=== PATIENT | female | born 1960 | race Caucasian/White ===

== ENCOUNTER 2020-10-09 12:06 | Outpatient (REF) | payer OTHER, SELFPAY ==
[2020-10-09 15:24] LABS: Alanine Aminotransferase 9 U/L (0-31); Alkaline Phosphatase 87 U/L (39-117); Anion Gap 13 (12-20); Aspartate Amino Transferase 16 U/L (5-31); Bilirubin Direct 0.2 mg/dL (0.0-0.5); Bilirubin Total 0.5 mg/dL (0.0-1.0); Blood Urea Nitrogen 19 mg/dL (9-16); Calcium 9.1 mg/dL (8.4-10.2); Carbon Dioxide 28 mmol/L (22-29); Chloride 106 mmol/L (96-108); Estimated Glomerular Filt Rate > 60; Glucose Random 85 mg/dL (60-115); Potassium 4.9 mmol/L (3.3-5.1); Sodium 142 mmol/L (135-145); Total Protein 6.4 g/dL (6.5-8.0)
[2020-10-09 15:28] LABS: Amphetamine Screen Urine Not Detected (Not Detect); Barbiturates, Urine Not Detected (Not Detect); Benzodiazepines Screen Urine Not Detected (Not Detect); Cannabinoid Screen Urine POSITIVE (Not Detect); Cocaine Screen Urine Not Detected (Not Detect); Opiate Screen Urine Not Detected (Not Detect); Phencyclidine Screen Urine Not Detected (Not Detect)
[2020-10-12 18:53] LABS: Codeine, Ur NEGATIVE ng/mL (<50); Hydrocodone, Ur NEGATIVE ng/mL (<50); Hydromorphone, Ur NEGATIVE ng/mL (<50); Morphine, Ur NEGATIVE ng/mL (<50); Norhydrocodone, Ur NEGATIVE ng/mL (<50); Noroxycodone, Ur 2294 ng/mL (<50); Oxycodone, Ur 1126 ng/mL (<50); Oxymorphone, Ur 1552 ng/mL (<50)
== END 2020-10-09 12:07 | disposition home or self-care (01) ==
LOC: HO.HMGCLDS 12:06
PROVIDERS: PCP Internal Medicine; Visit Provider Internal Medicine
DX: R52 Pain, unspecified (principal); G43.119 Migraine with aura, intractable, without status migrainosus; M16.0 Bilateral primary osteoarthritis of hip
CPT/HCPCS: 80048; 80076; 80307; 80364; 80365

== ENCOUNTER → 2020-11-10 09:50 | Outpatient (BNVA) | payer OTHER, SELFPAY | PROVIDERS: PCP Internal Medicine; Visit Provider Nurse Practitioner Family | DX: M47.816 Spondylosis without myelopathy or radiculopathy, lumbar region (principal) | CPT/HCPCS: 99212 ==

== ENCOUNTER → 2020-11-11 08:59 | Outpatient (BNVA) | payer OTHER, SELFPAY | PROVIDERS: PCP Internal Medicine; Visit Provider Physician Assistant | CPT/HCPCS: Q3014 ==

== ENCOUNTER 2020-12-24 11:47 | Day surgery (SDC) | payer OTHER, SELFPAY ==
[2020-12-17 15:55] VITALS: BMI 53.9
--- NOTE | 2020-12-23 09:05 | P.CONAN_ITS ---
Documented by User: Carla Grullonney 12/23/20 09:07 HPI - Anesthesia Eval Consult details Narrative: 60yo F for Colonoscopy prn opioids PMFSH Active Problems Active Problems: All Active Problems (Updated 12/17/20 @ 15:42 by Skyla Mcguire) Pain management (Acute) Encounter for screening colonoscopy (Acute) Change in mole (Acute) Depression (Acute) Blood pressure alteration (Acute) Migraine headache (Acute) Osteoarthritis, hip, bilateral (Acute) Past Medical History Medical History Chronic back pain Depression DJD (degenerative joint disease) Elevated cholesterol Migraine headache Osteoarthritis, hip, bilateral Spondylosis of lumbar region without myelopathy or radiculopathy Family History Family History Mother No problems noted. Sister No problems noted. Sister No problems noted. Son No problems noted. Father Lung cancer Surgical History Surgical History History of hip replacement History of wisdom tooth extraction Hx of cholecystectomy Hx of colonoscopy Hx of dilation and curettage S/P laparoscopic sleeve gastrectomy Social History Social History Household Members Other:: alone Are you a primary home health aide caregiver to a significant other at home: No Do you presently have visiting nurse or other home services: No Alcohol intake: never Years Smoked: 25 Smoked in Last 30 Days: No Use of substances other than those prescribed or required for medical reasons: No Substance Use Type: Marijuana Substance Use Type Other:: Denies use now Have you been hit, kicked, punched, or otherwise hurt by someone within the past year? If so, by whom?: No Are you DNR?: No Advance Directives: No Advance Directives Information Provided: No Advance Directives on File: No Recently lost weight without trying: No Eating poorly because of decreased appetite: No Nutrition Risks: No Nutritional Risk Patient : No Current occupational status: disabled Meds Allergies Allergy/AdvReac Type Severity Reaction Status Date / Time amoxicillin [AMOXICILLIN] Allergy Unknown ITCHING, Verified 12/24/20 12:04 rash clarithromycin Allergy Unknown ITCHING, Verified 12/24/20 12:04 [CLARITHROMYCIN] rash ENVIRONMENTAL Allergy Unknown RUNNY NOSE Uncoded 12/17/20 15:45 Home Medications Medication Instructions Recorded Confirmed Last Taken Type mirabegron 25 mg tablet,extended 25 mg PO DAILY 11/11/20 12/23/20 Unknown History release 24 hr trospium 60 mg capsule,extended 60 mg PO DAILY 11/11/20 12/23/20 Unknown History release 24 hr Exam Exam Date and Time: December 23, 2020 09 Height,Weight and Vital Signs: Height 5 ft 10 in Weight 170.551 kg Pertinent Lab Results Pertinent Lab Results: Laboratory Tests 04/10/20 10/09/20 09:58 12:13 WBC 5.0 Hgb 14.5 Hct 45.6 Plt Count 339 D Sodium 142 Potassium 4.9 Chloride 106 Carbon Dioxide 28 BUN 19 H Creatinine 0.79 Assessment and Plan Assessment Anesthesia Assessment: Chart Reviewed Documented by User: Kemal Rocha MD 12/24/20 12:48 PMFSH Past Medical History Medical History Chronic back pain Depression DJD (degenerative joint disease) Elevated cholesterol Migraine headache Osteoarthritis, hip, bilateral Spondylosis of lumbar region without myelopathy or radiculopathy Family History Family History Mother No problems noted. Sister No problems noted. Sister No problems noted. Son No problems noted. Father Lung cancer Surgical History Surgical History History of hip replacement History of wisdom tooth extraction Hx of cholecystectomy Hx of colonoscopy Hx of dilation and curettage S/P laparoscopic sleeve gastrectomy Social History Social History Household Members Other:: alone Are you a primary home health aide caregiver to a significant other at home: No Do you presently have visiting nurse or other home services: No Alcohol intake: never Years Smoked: 25 Smoked in Last 30 Days: No Use of substances other than those prescribed or required for medical reasons: No Substance Use Type: Marijuana Substance Use Type Other:: Denies use now Have you been hit, kicked, punched, or otherwise hurt by someone within the past year? If so, by whom?: No Are you DNR?: No Advance Directives: No Advance Directives Information Provided: No Advance Directives on File: No Recently lost weight without trying: No Eating poorly because of decreased appetite: No Nutrition Risks: No Nutritional Risk Patient : No Current occupational status: disabled Meds Allergies Allergy/AdvReac Type Severity Reaction Status Date / Time amoxicillin [AMOXICILLIN] Allergy Unknown ITCHING, Verified 12/24/20 12:04 rash clarithromycin Allergy Unknown ITCHING, Verified 12/24/20 12:04 [CLARITHROMYCIN] rash ENVIRONMENTAL Allergy Unknown RUNNY NOSE Uncoded 12/17/20 15:45 Home Medications Medication Instructions Recorded Confirmed Last Taken Type mirabegron 25 mg tablet,extended 25 mg PO DAILY 11/11/20 12/23/20 Unknown History release 24 hr trospium 60 mg capsule,extended 60 mg PO DAILY 11/11/20 12/23/20 Unknown History release 24 hr Exam Airway Mallampati Class: I TM Dist: >3cm Neck ROM: Full Loose/Missing/Broken Teeth: No Heart: RRR Lungs: NL Assessment and Plan Assessment Anesthesia Assessment: Anesthesia Plan Discussed and Chart Reviewed Final Anesthetic Review NPO: Yes ASA Class: III Final Preanesthetic Review: No Changes in Pt Med Stat, Meds/Allgs Chart Reviewed, Consent Obtained/Reviewed and Anes Risks/Benef Reviewed Patient Risk: High Procedure Risk: Low Anesthetic Plan Anesthetic Plan: MAC: Disposition: Standard PACU
[2020-12-24 12:15] VITALS: BP 140/67; PULSE 79; RESP 20; TEMP 36.3; O2SAT 96
[2020-12-24] MEDS: Lactated Ringers 1,000 ML 100 ML IVCONT (12:30)
--- NOTE | 2020-12-24 12:35 | MHC.SHP ---
Pre-Procedural Eval Section B Chief Complaint: Screening Relevant Family History (Specify if Yes): No Relevant Social History: Other (specify) (THC) Present Medications: see Short Stay Collaborative assessment Medical History: Significant History (Chronic back pain Depression DJD (degenerative joint disease) Elevated cholesterol Migraine headache Osteoarthritis, hip, bilateral Spondylosis of lumbar region without myelopathy or radiculopathy) History of Previous Operations: Relevant previous surgery/procedure and date(s) (History of hip replacement History of wisdom tooth extraction Hx of cholecystectomy Hx of colonoscopy Hx of dilation and curettage S/P laparoscopic sleeve gastrectomy) Allergies: Allergies Allergy/AdvReac Type Severity Reaction Status Date / Time amoxicillin [AMOXICILLIN] Allergy Unknown ITCHING, Verified 12/24/20 12:04 rash clarithromycin Allergy Unknown ITCHING, Verified 12/24/20 12:04 [CLARITHROMYCIN] rash ENVIRONMENTAL Allergy Unknown RUNNY NOSE Uncoded 12/17/20 15:45 Review of Systems Sugical H&P ROS: Negative: Cardiovascular, Respiratory, Neurological, Psychiatric, Hem-Onc, Allergic/Immunologic, Gastrointestinal, Genitourinary, Musculoskeletal, Integumentary, Endocrine and Eyes/Ears/Nose/Throat and Yes, Specify: Constitution (obese) Exam Surgical H&P Exam: Normal: HEENT, Normal: Heart, Normal: Lungs, Normal: Extremities, Normal: Abdomen, Normal: Skin and Normal: Neurological Plan Diagnosis/Plan: Unchanged I have reviewed the history and physical and performed a pertinent physical examination on my patient. No changes have occurred unless specified.
--- NOTE | 2020-12-24 13:03 | P.OP_ITS ---
Operative Note Operative Note Date of Service: 12/24/20 Narrative: Operative Information Procedure Description: Colonoscopy COLONOSCOPY Instrument: Olympus variable stiffness adult scope 190L Colonoscopy Monitoring: Vital signs and clinical assessment, continuous EKG monitoring, Pulse oximetry, Carbon Dioxide monitoring and blood pressure monitoring were done throughout the procedure. Colon withdrawal time was 14 minutes. Procedure: The patient was placed in the left lateral decubitis position and pre-procedure medications were administered. After a digital rectal examination of the ano-rectum, the video colonoscope was inserted into the rectum and advanced through the colon to the cecum/TI. The colonoscope was slowly withdrawn in a retrograde panoramic fashion and the colon mucosa was carefully examined including a retroflexed view of the rectum. Findings and interventions are described below. Procedure Difficulty:moderate Findings: Terminal Ileum-normal Cecum: 6-8 mm sessile polyp removed with forceps Ascending Colon: 6-8 mm sessile polyp removed with forceps Transverse Colon -normal Descending Colon:normal Sigmoid Colon: moderate severe diverticulosis, with mucosal hypertrophy Rectosigmoid junction-- 10-12 mm sessile polyp removed with cold snare Rectum: Retroflexion with small internal hemorrhoids, grade I Anorectum - normal Colon preparation: [place] Bowel Preparation Scale Right colon; 2 Transverse colon: 2 Left colon; 3 (0 = Unprepared colon segment with mucosa not seen due to solid stool that cannot be cleared. 1 = Portion of mucosa of the colon segment seen, but other areas of the colon segment not well seen due to staining, residual stool and/or opaque liquid. 2 = Minor amount of residual staining, small fragments of stool and/or opaque liquid, but mucosa of colon segment seen well. 3 = Entire mucosa of colon segment seen well with no residual staining, small fragments of stool or opaque liquid) Impression and Post Procedure Diagnosis: polyps internal hemorrhoids diverticular disease Plan: High fiber diet leaflet Avoid straining at stool, epsom salts and sitz bath, anusol supps or cream as needed Repeat Colonoscopy in 5 years or earlier if clinically indicated Above findings were reviewed with the patient and relevant handouts were provided if indicated.
--- NOTE | 2020-12-24 13:03 | PM.OP ---
Brief Operative Note Date of Service: 12/24/20 Pre-op diagnosis: colon screening Post-op diagnosis: same Procedure: see op note Surgeon: Davie Werner MD Anesthesia: MAC Was an Painting And Coating Worker used for this Procedure?: No Estimated blood loss (mL): 0 Condition: stable Disposition: PACU
[2020-12-24 13:44] VITALS: BP 150/83; PULSE 74; RESP 20; TEMP 37.1; O2SAT 99
[2020-12-24 13:59] VITALS: BP 157/81; PULSE 74; RESP 18; TEMP 37; O2SAT 99
== END 2020-12-24 15:00 | disposition home or self-care (01) ==
PROVIDERS: PCP Internal Medicine; Visit Provider Internal Medicine Gastroenterology
PROC: 0DJD8ZZ Inspection of Lower Intestinal Tract, Via Natural or Artificial Opening Endoscopic (ICD-10-PCS; CPT 45378; principal; 2020-12-24 13:00)
DX: Z12.11 Encounter for screening for malignant neoplasm of colon (principal); D12.2 Benign neoplasm of ascending colon; D12.7 Benign neoplasm of rectosigmoid junction; K63.5 Polyp of colon; K57.30 Diverticulosis of large intestine without perforation or abscess without bleeding; K64.0 First degree hemorrhoids; K64.4 Residual hemorrhoidal skin tags; Z90.49 Acquired absence of other specified parts of digestive tract; F12.90 Cannabis use, unspecified, uncomplicated; Z98.84 Bariatric surgery status; Z88.0 Allergy status to penicillin; Z88.1 Allergy status to other antibiotic agents
CPT/HCPCS: 45385; 45380; 88305

== ENCOUNTER 2021-01-05 07:31 | Outpatient (REF) | payer OTHER, SELFPAY ==
--- NOTE | ~2021-01-05 | FL_ITS ---
EXAMINATION: XR FLUOROSCOPY WITH IMAGES CLINICAL INFORMATION: Spondylosis without myelopathy cortical collapse COMPARISON: None. TECHNIQUE: Fluoroscopy performed by Ayaan Linares. Fluoroscopy time: 1.1 minutes DAP: 26.3 Gycm2 Images: 6 FINDINGS: There are 5 6 images available revealing and bilateral needles positioned lateral to the L4-L5 and S1 pedicles with contrast opacification of the soft tissues for nerve block. Visualized bones are grossly unremarkable. FL/FL guidance in treatment room IMPRESSION: Fluoroscopy was provided to Ayana Linares during spinal procedure.
== END 2021-01-05 07:32 | disposition home or self-care (01) ==
LOC: HO.RADIR 07:31
PROVIDERS: Visit Provider Anesthesiology
DX: M47.816 Spondylosis without myelopathy or radiculopathy, lumbar region (principal)
CPT/HCPCS: 64493; 64494; J3300; Q9967

== ENCOUNTER → 2021-01-12 10:48 | Outpatient (BNVA) | payer OTHER, SELFPAY | PROVIDERS: PCP Internal Medicine; Visit Provider Nurse Practitioner Family | DX: M47.816 Spondylosis without myelopathy or radiculopathy, lumbar region (principal) | CPT/HCPCS: Q3014 ==

== ENCOUNTER → 2021-01-18 09:07 | Outpatient (BNVA) | payer OTHER, SELFPAY | PROVIDERS: PCP Internal Medicine; Visit Provider Physician Assistant | CPT/HCPCS: Q3014 ==

== ENCOUNTER 2021-03-23 07:37 | Outpatient (REF) | payer OTHER, SELFPAY ==
--- NOTE | ~2021-03-23 | FL_ITS ---
EXAMINATION: XR FLUOROSCOPY WITH IMAGES CLINICAL INFORMATION: Spondylolysis COMPARISON: Previous exam December 2020 TECHNIQUE: Fluoroscopy performed by Dr. Szymanski Fluoroscopy time: 1.4 minutes DAP: 28 Gycm2 Images: 3 FINDINGS: Images demonstrate probe placement adjacent to the lateral bilateral L3, L4 and L5 vertebral bodies. FL/FL guidance in treatment room IMPRESSION: Fluoroscopy guidance for spinal procedure.
== END 2021-03-23 07:38 | disposition home or self-care (01) ==
LOC: HO.RADIR 07:37
PROVIDERS: Visit Provider Anesthesiology
DX: M47.816 Spondylosis without myelopathy or radiculopathy, lumbar region (principal); E66.01 Morbid (severe) obesity due to excess calories
CPT/HCPCS: 64635; 64636; J3300

== ENCOUNTER → 2021-04-28 11:16 | Outpatient (BNVA) | payer OTHER, SELFPAY | PROVIDERS: PCP Internal Medicine; Visit Provider Anesthesiology | DX: Z47.89 Encounter for other orthopedic aftercare (principal); M47.816 Spondylosis without myelopathy or radiculopathy, lumbar region; E66.01 Morbid (severe) obesity due to excess calories; Z68.43 Body mass index [BMI] 50.0-59.9, adult | CPT/HCPCS: Q3014 ==

== ENCOUNTER 2021-08-24 13:49 | Outpatient (REF) | payer OTHER, SELFPAY ==
[2021-08-24 16:49] LABS: Alanine Aminotransferase 11 U/L (0-31); Albumin Level 3.7 g/dL (3.5-5.0); Alkaline Phosphatase 82 U/L (39-117); Anion Gap 12 (12-20); Aspartate Amino Transferase 13 U/L (5-31); Bilirubin Total 0.4 mg/dL (0.0-1.0); Blood Urea Nitrogen 25 mg/dL (9-16); Calcium 9.2 mg/dL (8.4-10.2); Carbon Dioxide 26 mmol/L (22-29); Chloride 107 mmol/L (96-108); Estimated Glomerular Filt Rate > 60; Glucose Random 95 mg/dL (60-115); Potassium 4.8 mmol/L (3.3-5.1); Sodium 140 mmol/L (135-145); Total Protein 6.4 g/dL (6.5-8.0)
[2021-08-24 16:57] LABS: Amphetamine Screen Urine Not Detected (Not Detect); Barbiturates, Urine Not Detected (Not Detect); Benzodiazepines Screen Urine Not Detected (Not Detect); Cannabinoid Screen Urine Not Detected (Not Detect); Cocaine Screen Urine Not Detected (Not Detect); Fentanyl, urine Not Detected (Not Detect); Opiate Screen Urine POSITIVE (Not Detect); Phencyclidine Screen Urine Not Detected (Not Detect)
[2021-08-29 13:01] LABS: Codeine, Ur 213; Hydrocodone, Ur NEGATIVE; Hydromorphone, Ur NEGATIVE; Morphine, Ur NEGATIVE; Oxycodone, Ur 1589; Oxymorphone, Ur 1092
[2021-08-29 13:02] LABS: Norhydrocodone, Ur NEGATIVE; Noroxycodone, Ur 4128
== END 2021-08-24 13:50 | disposition home or self-care (01) ==
LOC: HO.HMGCLDS 13:49
PROVIDERS: Visit Provider Internal Medicine
DX: F11.20 Opioid dependence, uncomplicated (principal); G43.909 Migraine, unspecified, not intractable, without status migrainosus; M16.0 Bilateral primary osteoarthritis of hip; R52 Pain, unspecified
CPT/HCPCS: 80053; 80307; 80364; 80365

== ENCOUNTER 2022-03-04 11:05 | Outpatient (REF) | payer OTHER, SELFPAY ==
[2022-03-04 13:35] LABS: MANUAL DIFF FLAG NO
[2022-03-04 13:47] LABS: Basophils Percent Auto 0.7 % (0-2); Eosinophils Absolute Auto 0.1 X10*3/uL (0.0-0.4); Eosinophils Percent Auto 2.9 % (0-4); Hematocrit 42.8 % (37.0-47.0); Hemoglobin 13.6 g/dl (12.0-16.0); Imm Gran Abs Auto 0.01 X10*3/uL (0.00-0.03); Imm Gran Pct Auto 0.2 % (0.0-0.4); Lymphocytes Absolute Auto 1.3 X10*3/uL (1.2-4.9); Lymphocytes Percent Auto 29.5 % (20-40); Mean Corpuscular HGB Conc 31.8 g/dl (31.0-35.0); Mean Corpuscular Hemoglobin 29.1 pg (27.0-33.0); Mean Corpuscular Volume 91.6 fL (80.0-98.0); Monocytes Absolute Auto 0.3 X10*3/uL (0.1-1.2); Monocytes Percent Auto 5.6 % (2-11); Neutrophils Absolute Auto 2.7 x10*3/uL (2.0-8.3); Neutrophils Percent Auto 61.1 % (45-73); Platelet Count 310 X10*3/uL (160-400); Red Blood Count 4.67 X10*6/uL (4.20-5.50); Red Cell Distribution Width 12.9 % (11.0-16.0); White Blood Count 4.4 X10*3/uL (4.8-10.8)
[2022-03-04 13:58] LABS: Alanine Aminotransferase 11 U/L (0-31); Albumin Level 3.8 g/dL (3.5-5.0); Alkaline Phosphatase 82 U/L (39-117); Anion Gap 13 (12-20); Aspartate Amino Transferase 13 U/L (5-31); Bilirubin Total 0.5 mg/dL (0.0-1.0); Blood Urea Nitrogen 19 mg/dL (9-16); Calcium 8.9 mg/dL (8.4-10.2); Carbon Dioxide 27 mmol/L (22-29); Chloride 107 mmol/L (96-108); Estimated Glomerular Filt Rate > 60; Glucose Random 96 mg/dL (60-115); Potassium 4.8 mmol/L (3.3-5.1); Sodium 142 mmol/L (135-145); Total Protein 6.3 g/dL (6.5-8.0)
[2022-03-04 14:13] LABS: Amphetamine Screen Urine Not Detected (Not Detect); Barbiturates, Urine Not Detected (Not Detect); Benzodiazepines Screen Urine Not Detected (Not Detect); Cannabinoid Screen Urine Not Detected (Not Detect); Cocaine Screen Urine Not Detected (Not Detect); Fentanyl, urine POSITIVE (Not Detect); Opiate Screen Urine POSITIVE (Not Detect); Phencyclidine Screen Urine Not Detected (Not Detect)
[2022-03-09 06:55] LABS: Codeine, Ur NEGATIVE
[2022-03-09 06:56] LABS: Hydrocodone, Ur NEGATIVE; Hydromorphone, Ur NEGATIVE; Morphine, Ur NEGATIVE
[2022-03-09 06:57] LABS: Norhydrocodone, Ur NEGATIVE
== END 2022-03-04 11:06 | disposition home or self-care (01) ==
LOC: HO.HMGCLDS 11:05
PROVIDERS: PCP Internal Medicine; Visit Provider Internal Medicine
DX: E66.01 Morbid (severe) obesity due to excess calories (principal); F11.20 Opioid dependence, uncomplicated; G43.909 Migraine, unspecified, not intractable, without status migrainosus; M16.0 Bilateral primary osteoarthritis of hip; N32.9 Bladder disorder, unspecified; R52 Pain, unspecified
CPT/HCPCS: 80053; 80307; 80364; 80365; 85025

== ENCOUNTER 2022-09-09 10:11 | Outpatient (REF) | payer OTHER, SELFPAY ==
[2022-09-09 11:31] LABS: MANUAL DIFF FLAG NO
[2022-09-09 11:51] LABS: Basophils Percent Auto 0.5 % (0-2); Eosinophils Absolute Auto 0.1 X10*3/uL (0.0-0.4); Eosinophils Percent Auto 1.8 % (0-4); Hematocrit 43.1 % (37.0-47.0); Hemoglobin 13.9 g/dl (12.0-16.0); Imm Gran Abs Auto 0.02 X10*3/uL (0.00-0.03); Imm Gran Pct Auto 0.4 % (0.0-0.4); Lymphocytes Absolute Auto 1.6 X10*3/uL (1.2-4.9); Lymphocytes Percent Auto 28.7 % (20-40); Mean Corpuscular HGB Conc 32.3 g/dl (31.0-35.0); Mean Corpuscular Hemoglobin 29.4 pg (27.0-33.0); Mean Corpuscular Volume 91.1 fL (80.0-98.0); Mean Platelet Volume 10.9 fL (9.4-12.3); Monocytes Absolute Auto 0.4 X10*3/uL (0.1-1.2); Monocytes Percent Auto 6.4 % (2-11); Neutrophils Absolute Auto 3.4 x10*3/uL (2.0-8.3); Neutrophils Percent Auto 62.2 % (45-73); Platelet Count 340 X10*3/uL (160-400); Red Blood Count 4.73 X10*6/uL (4.20-5.50); Red Cell Distribution Width 13.4 % (11.0-16.0); White Blood Count 5.5 X10*3/uL (4.8-10.8)
[2022-09-09 12:20] LABS: Alanine Aminotransferase 15 U/L (0-31); Alkaline Phosphatase 99 U/L (39-117); Anion Gap 16 (12-20); Aspartate Amino Transferase 17 U/L (5-31); Bilirubin Total 0.7 mg/dL (0.0-1.0); Blood Urea Nitrogen 21 mg/dL (9-16); Calcium 9.2 mg/dL (8.4-10.2); Carbon Dioxide 23 mmol/L (22-29); Chloride 107 mmol/L (96-108); Cholesterol 271 mg/dL; Estimated Glomerular Filt Rate > 60; Glucose Fasting 97 mg/dL (60-99); HDL Cholesterol 85 mg/dL; LDL Cholesterol Calculated 171 mg/dl; Potassium 4.7 mmol/L (3.3-5.1); Sodium 141 mmol/L (135-145); TSH reflex Free T4 1.95 uIU/mL (0.32-4.0); Total Protein 6.5 g/dL (6.5-8.0); Triglycerides 76 mg/dL
== END 2022-09-09 10:12 | disposition home or self-care (01) ==
LOC: HO.HMGCLDS 10:11
PROVIDERS: PCP Internal Medicine; Visit Provider Internal Medicine
DX: E66.01 Morbid (severe) obesity due to excess calories (principal); G43.909 Migraine, unspecified, not intractable, without status migrainosus; G47.9 Sleep disorder, unspecified; M16.0 Bilateral primary osteoarthritis of hip; F33.9 Major depressive disorder, recurrent, unspecified
CPT/HCPCS: 36415; 80053; 80061; 84443; 85025

== ENCOUNTER 2023-03-04 10:34 | Outpatient (REF) | payer OTHER, SELFPAY ==
[2023-03-04 11:35] LABS: Alanine Aminotransferase 20 U/L (0-31); Albumin Level 3.8 g/dL (3.5-5.0); Alkaline Phosphatase 98 U/L (39-117); Aspartate Amino Transferase 16 U/L (5-31); Bilirubin Direct 0.2 mg/dL (0.0-0.5); Bilirubin Total 0.6 mg/dL (0.0-1.0); Cholesterol 226 mg/dL; HDL Cholesterol 83 mg/dL; LDL Cholesterol Calculated 127 mg/dl; Total Protein 6.7 g/dL (6.5-8.0); Triglycerides 82 mg/dL
== END 2023-03-04 10:35 | disposition home or self-care (01) ==
LOC: HO.HMGCLDS 10:34
PROVIDERS: PCP Internal Medicine; Visit Provider Internal Medicine
DX: E78.9 Disorder of lipoprotein metabolism, unspecified (principal); M16.0 Bilateral primary osteoarthritis of hip; G43.909 Migraine, unspecified, not intractable, without status migrainosus; F11.20 Opioid dependence, uncomplicated; R52 Pain, unspecified; N32.9 Bladder disorder, unspecified; E66.01 Morbid (severe) obesity due to excess calories
CPT/HCPCS: 36415; 80061; 80076

== ENCOUNTER 2023-03-07 14:42 | Outpatient (AMB) | payer OTHER, SELFPAY ==
--- NOTE | 2023-03-07 14:43 | A.OFFPC_ITS ---
Intake Visit Reasons: 3 month follow up Android Allergies amoxicillin [AMOXICILLIN] Allergy (Unknown, Verified 03/07/23 14:43) ITCHING, rash clarithromycin [CLARITHROMYCIN] Allergy (Unknown, Verified 03/07/23 14:43) ITCHING, rash ENVIRONMENTAL Allergy (Unknown, Uncoded 12/17/20 15:45) RUNNY NOSE Medication List - Last Reconciled 03/07/23 by Valorie Clay MD [Blood pressure monitor As directed] cyclobenzaprine 5 mg PO ONCE PRN 30 days meloxicam 15 mg PO DAILY 90 days omeprazole 20 mg PO DAILY 90 days simvastatin 10 mg PO DAILY sumatriptan succinate 50 mg PO DAILY PRN tramadol 50 mg PO TID PRN 30 days vibegron (Gemtesa) 75 mg PO DAILY Tobacco use date assessed: 03/07/23 Fall risk assessment: No Falls in past year Last assessed Fall Risk: 03/07/23 Dental Screening Dental Screen Date: 03/07/23 Did you have a dental visit in the last 12 months?: Yes Did you have a dental problem in the last 6 months where you did not have access to dental care?: No Was dental information given to patient?: No HPI 3 month follow up Android HPI Details Patient is 62-year-old female this is a 3 month follow-up appointment tele medicine Currently patient is taking tramadol 3 times a day for severe osteoarthritis hip pain. Patient is aware of side effects complying with the treatment plan refill sent for next 3 month. She also takes meloxicam for the pain management Migraine headaches are stable with sumatriptan 50 mg GERD stable with omeprazole 20 mg as needed Follow-up 3 months [facility] Medical History Chronic back pain Depression DJD (degenerative joint disease) Elevated cholesterol Migraine headache Osteoarthritis, hip, bilateral Spondylosis of lumbar region without myelopathy or radiculopathy Surgical History History of hip replacement History of wisdom tooth extraction Hx of cholecystectomy Hx of colonoscopy Hx of dilation and curettage S/P laparoscopic sleeve gastrectomy Family History Mother No problems noted. Sister No problems noted. Sister No problems noted. Son No problems noted. Father Lung cancer Social History Household Members Other:: alone Housing: House Are you a primary critical care physician to a significant other at home: No Do you presently have visiting nurse or other home services: No Alcohol intake: never Patient Tobacco Use Status: Never used Tobacco Years Smoked: 25 e-Cigarette/Vaping Use: Never Used Substance Use Type: Marijuana service: No Current occupational status: disabled Cognitive needs: No Hearing needs: No Vision needs: Yes Questionnaire Thrive Questionnaire Date Thrive assessed: 03/04/22 AUDIT C Alcohol Use Questionnaire (AUDIT-C) 1. How often do you have a drink containing alcohol?: Never 3. How often do you have six or more drinks on one occasion?: Never Total Score: 0 Score Reviewed/Action Taken: Yes CLIFTON-7 AMB Questionnaire CLIFTON-7 Date CLIFTON - 7 assessed: 03/04/22 Source: Developed by Drs. Seth Taylor, Fátima Mark, Kirby Torres and colleagues, with an educational ni from [employer]. Review of Systems Const Denies chills and Denies fever(s) ENT Denies epistaxis and Denies nasal discharge Card Denies chest pain Resp Denies chest congestion, Denies cough and Denies hemoptysis GI Denies diarrhea and Denies nausea Skin/Breast Denies rash Neuro Reports no additional complaints Psych Reports no additional complaints Endo Reports no additional complaints Physical exam (Primary Care) Tobacco/Smoking Status: Tobacco use Status Tobacco use date assessed 03/07/23 03/07/23 14:44 Patient Tobacco Use Status Never used Tobacco 03/07/23 14:44 e-Cigarette/Vaping Use Never Used 03/07/23 14:44 Thrive Assessment: Date of Thrive Assessment Date Thrive assessed 03/04/22 03/07/23 14:44 Telehealth Telehealth Location of provider rendering services: practice address Location of patient: address on file Patient Identification confirmed using: Name, : Yes Telehealth method: voice only Patient verbally consented to treatment: Yes Patient verbally consented to billing insurance company: Yes Patient informed of any privacy concerns related to visit: Yes Minutes spent on Phone/Video with Pt.: 13 Assessment and Plan Assessment & Plan (1) Migraine headache: Code(s): G43.909 - Migraine, unspecified, not intractable, without status migrainosus Qualifiers: Intractability: intractable Migraine type: with aura Status migrainosus presence: without status migrainosus Qualified Code(s): G43.119 - Migraine with aura, intractable, without status migrainosus (2) Osteoarthritis, hip, bilateral: Code(s): M16.0 - Bilateral primary osteoarthritis of hip Qualifiers: Osteoarthritis type: primary Qualified Code(s): M16.0 - Bilateral primary osteoarthritis of hip (3) Chronic GERD: Code(s): K21.9 - Gastro-esophageal reflux disease without esophagitis Plan Patient is 62-year-old female this is a 3 month follow-up appointment tele medicine Currently patient is taking tramadol 3 times a day for severe osteoarthritis hip pain. Patient is aware of side effects complying with the treatment plan refill sent for next 3 month. She also takes meloxicam for the pain management Migraine headaches are stable with sumatriptan 50 mg GERD stable with omeprazole 20 mg as needed Follow-up 3 months Medications: Refilled cyclobenzaprine 5 mg PO ONCE PRN 30 tabs 0RF muscle spasm 30 days M54.9 - Dorsalgia, unspecified meloxicam 15 mg PO DAILY 90 tabs 0RF 90 days omeprazole 20 mg PO DAILY 90 caps 0RF 90 days simvastatin 10 mg PO DAILY 90 tabs 0RF sumatriptan succinate 50 mg PO DAILY PRN 14 tabs 5RF for migraine tramadol 50 mg PO TID PRN 90 tabs 2RF pain 30 days Coding Level of Care Code Tele Est Pt Level 3 (64629) Diagnoses Migraine headache G43.119 Intractability: intractable Migraine type: with aura Status migrainosus presence: without status migrainosus Osteoarthritis, hip, bilateral M16.0 Osteoarthritis type: primary Chronic GERD K21.9
== END 2023-03-07 16:04 | disposition home or self-care (01) ==
PROVIDERS: PCP Internal Medicine; Visit Provider Internal Medicine
DX: G43.119 Migraine with aura, intractable, without status migrainosus (principal); M16.0 Bilateral primary osteoarthritis of hip; K21.9 Gastro-esophageal reflux disease without esophagitis
CPT/HCPCS: 99442

== ENCOUNTER 2023-05-04 08:11 | Outpatient (AMB) | payer OTHER, SELFPAY ==
--- NOTE | 2023-05-04 09:12 | MHC.PC.OV ---
Intake Visit Reasons: Med Follow Up~ Allergies amoxicillin [AMOXICILLIN] Allergy (Unknown, Verified 05/04/23 09:12) ITCHING, rash clarithromycin [CLARITHROMYCIN] Allergy (Unknown, Verified 05/04/23 09:12) ITCHING, rash ENVIRONMENTAL Allergy (Unknown, Uncoded 12/17/20 15:45) RUNNY NOSE Medication List - Last Reconciled 05/04/23 by Valorie Clay MD [Blood pressure monitor As directed] cyclobenzaprine 5 mg PO ONCE PRN 30 days meloxicam 15 mg PO DAILY 90 days omeprazole 20 mg PO DAILY 90 days simvastatin 10 mg PO DAILY sumatriptan succinate 50 mg PO DAILY PRN tramadol 50 mg PO TID PRN 30 days vibegron (Gemtesa) 75 mg PO DAILY Tobacco use date assessed: 05/04/23 Fall risk assessment: No Falls in past year Last assessed Fall Risk: 05/04/23 Dental Screening Dental Screen Date: 05/04/23 Did you have a dental visit in the last 12 months?: Yes Did you have a dental problem in the last 6 months where you did not have access to dental care?: No Was dental information given to patient?: Patient has dentist HPI Med Follow Up~ HPI Details Patient is 62-year-old female this is telemed video follow up Currently patient is taking tramadol 3 times a day for severe osteoarthritis hip pain. Patient is aware of side effects complying with the treatment plan refill is not due till early next month, pt will call me She also takes meloxicam for the pain management with food Migraine headaches are stable with sumatriptan 50 mg, but today pt is having a headache GERD stable with omeprazole 20 mg as needed Follow-up end of Jul [facility] Medical History DJD (degenerative joint disease) Chronic back pain Depression Elevated cholesterol Spondylosis of lumbar region without myelopathy or radiculopathy Migraine headache Osteoarthritis, hip, bilateral Surgical History Hx of colonoscopy S/P laparoscopic sleeve gastrectomy Hx of dilation and curettage History of hip replacement History of wisdom tooth extraction Hx of cholecystectomy Family History Mother No problems noted. Sister No problems noted. Sister No problems noted. Son No problems noted. Father Lung cancer Social History Household Members Other:: alone Housing: House Are you a primary home care consultant to a significant other at home: No Do you presently have visiting nurse or other home services: No Alcohol intake: never Patient Tobacco Use Status: Never used Tobacco Years Smoked: 25 e-Cigarette/Vaping Use: Never Used Substance Use Type: Marijuana service: No Current occupational status: disabled Cognitive needs: No Hearing needs: No Vision needs: Yes Questionnaire PHQ-9 Over the last 2 weeks, how often have you been bothered by any of the following problems? 1. Little interest or pleasure in doing things: several days 2. Feeling down, depressed, or hopeless: several days 3. Trouble falling or staying asleep, or sleeping too much: more than half the days 4. Feeling tired or having little energy: more than half the days 5. Poor appetite or overeating: not at all 6. Feeling bad about yourself - or that you are a failure or have let yourself or your family down: not at all 7. Trouble concentrating on things, such as reading the newspaper or watching television: not at all 8. Moving or speaking so slowly that other people could have noticed. Or the opposite - being so fidgety or restless that you have been moving around a lot more than usual: not at all 9. Thoughts that you would be better off or of hurting yourself in some way: not at all Total score: 6 Depression Screening Interpretation: Positive Depression Screening Follow-up: Existing condition and Declines treatment Depression Screening Done: Yes 30972 - PHQ-9 Billing: Yes Source: Developed by Drs. Seth Taylor, Fátima Mark, Kirby Torres and colleagues, with an educational ni from [employer]. Thrive Questionnaire Date Thrive assessed: 05/04/23 I am a: Patient What is your living situation today?: I have a steady place to live Within the past 12 months, did the food you bought not last and you didn't have the money to get more?: I choose not to answer this question Within the past 12 months, did you worry whether your food would run out before you got money to buy more?: I choose not to answer this question Do you have trouble paying for medicines?: I choose not to answer this question Do you have trouble getting transportation to medical appointments?: I choose not to answer this question Do you have trouble paying your heating and electricity bill?: I choose not to answer this question Do you have trouble taking care of your child, family member or friend?: I choose not to answer this question Do you have trouble with day-to-day activities such as bathing, preparing meals, shopping, managing finances, etc.?: I choose not to answer this question Are you currently unemployed and looking for a job?: I choose not to answer this question Are you interested in more education?: I choose not to answer this question Currently or been in a relationship where the following occur: I choose not to answer this question AUDIT C Alcohol Use Questionnaire (AUDIT-C) 1. How often do you have a drink containing alcohol?: Never 3. How often do you have six or more drinks on one occasion?: Never Total Score: 0 Score Reviewed/Action Taken: Yes CLIFTON-7 AMB Questionnaire CLIFTON-7 Date CLIFTON - 7 assessed: 03/04/22 Source: Developed by Drs. Seth Taylor, Fátima Mark, Kirby Torres and colleagues, with an educational ni from [employer]. CLIFTON-7 Assessment Billing CLIFTON-7 Assessment Tool: pt declined-do not bill Review of Systems Const Denies chills and Denies fever(s) ENT Denies epistaxis and Denies nasal discharge Card Denies chest pain Resp Denies chest congestion, Denies cough and Denies hemoptysis GI Denies diarrhea and Denies nausea Skin/Breast Denies rash Neuro Reports no additional complaints Psych Reports no additional complaints Endo Reports no additional complaints Physical exam (Primary Care) Tobacco/Smoking Status: Tobacco use Status Tobacco use date assessed 05/04/23 05/04/23 09:13 Patient Tobacco Use Status Never used Tobacco 05/04/23 09:13 e-Cigarette/Vaping Use Never Used 05/04/23 09:13 PHQ-9: PHQ-9 Score PHQ-9: Total score 6 05/04/23 09:14 Depression Screening Interpretation: Positive Depression Screening Follow-up: Existing condition and Declines treatment Thrive Assessment: Date of Thrive Assessment Date Thrive assessed 05/04/23 05/04/23 09:14 Currently or been in a relationship where the following occur: I choose not to answer this question Telehealth Telehealth Location of provider rendering services: practice address Location of patient: address on file Patient Identification confirmed using: Name, : Yes Telehealth method: video Patient verbally consented to treatment: Yes Patient verbally consented to billing insurance company: Yes Patient informed of any privacy concerns related to visit: Yes Assessment and Plan Assessment & Plan (1) Migraine headache: Code(s): G43.909 - Migraine, unspecified, not intractable, without status migrainosus Qualifiers: Migraine type: with aura Status migrainosus presence: without status migrainosus Intractability: intractable Qualified Code(s): G43.119 - Migraine with aura, intractable, without status migrainosus (2) Osteoarthritis, hip, bilateral: Code(s): M16.0 - Bilateral primary osteoarthritis of hip Qualifiers: Osteoarthritis type: primary Qualified Code(s): M16.0 - Bilateral primary osteoarthritis of hip (3) Chronic GERD: Code(s): K21.9 - Gastro-esophageal reflux disease without esophagitis Plan Patient is 62-year-old female this is telemed video follow up Currently patient is taking tramadol 3 times a day for severe osteoarthritis hip pain. Patient is aware of side effects complying with the treatment plan refill is not due till early next month, pt will call me She also takes meloxicam for the pain management with food Migraine headaches are stable with sumatriptan 50 mg, but today pt is having a headache GERD stable with omeprazole 20 mg as needed Follow-up end of Jul Medications: Changed From cyclobenzaprine 5 mg PO ONCE 30 days PRN 30 tabs 0RF muscle spasm M54.9 - Dorsalgia, unspecified To cyclobenzaprine 5 mg PO ONCE 90 days PRN 90 tabs 0RF muscle spasm M54.9 - Dorsalgia, unspecified Coding Level of Care Code Tele Est Pt Level 3 (44839) Diagnoses Intractable migraine with aura without status migrainosus G43.119 Migraine type: with aura Status migrainosus presence: without status migrainosus Intractability: intractable Primary osteoarthritis of both hips M16.0 Osteoarthritis type: primary Chronic GERD K21.9 Time Spent (min) 16
== END 2023-05-04 12:32 | disposition home or self-care (01) ==
LOC: HO.HMGC 08:11
PROVIDERS: PCP Internal Medicine; Visit Provider Internal Medicine
DX: G43.119 Migraine with aura, intractable, without status migrainosus (principal); M16.0 Bilateral primary osteoarthritis of hip; K21.9 Gastro-esophageal reflux disease without esophagitis
CPT/HCPCS: 99213

== ENCOUNTER 2023-08-24 07:36 | Outpatient (AMB) | payer OTHER, SELFPAY ==
--- NOTE | 2023-08-24 08:37 | MHC.PC.OV ---
Vital Signs 08/24/23 08:37 Height 5 ft 10 in Intake Visit Reasons: Med Review Allergies amoxicillin [AMOXICILLIN] Allergy (Unknown, Verified 08/24/23 08:37) ITCHING, rash clarithromycin [CLARITHROMYCIN] Allergy (Unknown, Verified 08/24/23 08:37) ITCHING, rash ENVIRONMENTAL Allergy (Unknown, Uncoded 12/17/20 15:45) RUNNY NOSE Medication List - Last Reconciled 08/24/23 by Valorie Clay MD [Blood pressure monitor As directed] cyclobenzaprine 5 mg PO ONCE PRN 90 days meloxicam 15 mg PO DAILY 90 days omeprazole 20 mg PO DAILY 90 days simvastatin 10 mg PO DAILY sumatriptan succinate 50 mg PO DAILY PRN tramadol 50 mg PO TID PRN 30 days vibegron (Gemtesa) 75 mg PO DAILY Tobacco use date assessed: 08/24/23 Fall risk assessment: No Falls in past year Last assessed Fall Risk: 08/24/23 Dental Screening Dental Screen Date: 08/24/23 Did you have a dental visit in the last 12 months?: Yes Did you have a dental problem in the last 6 months where you did not have access to dental care?: No Was dental information given to patient?: Patient has dentist HPI Med Review HPI Details This is a telemedicine video follow-up Patient is 62-year-old female with history of migraine headaches, morbid obesity, severe osteoarthritis both hips, back spasms, Uses a Rollator with seat for ambulation. Patient says that her Rollator has got damaged, 1 of his we will is broken, she called the medical supply store and this at the need a new script they cannot change the wheel. I will start the process. Meanwhile patient is taking all her medications, and tolerating it, she continued to have pain in her hips but manageable at this time. She is complaining of feeling the need to move her left leg at night frequently otherwise she feel uncomfortable. Explained to patient that it can be restless leg syndrome, I am ordering labs and ferritin level patient is to do that to further evaluate this problem. She has an appointment in November for physical exam. COUNT INCLUDES THE [facility] Medical History DJD (degenerative joint disease) Chronic back pain Depression Elevated cholesterol Spondylosis of lumbar region without myelopathy or radiculopathy Migraine headache Osteoarthritis, hip, bilateral Surgical History Hx of colonoscopy S/P laparoscopic sleeve gastrectomy Hx of dilation and curettage History of hip replacement History of wisdom tooth extraction Hx of cholecystectomy Family History Mother No problems noted. Sister No problems noted. Sister No problems noted. Son No problems noted. Father Lung cancer Social History Household Members Other:: alone Housing: House Are you a primary career professional to a significant other at home: No Do you presently have visiting nurse or other home services: No Alcohol intake: never Patient Tobacco Use Status: Never used Tobacco Years Smoked: 25 e-Cigarette/Vaping Use: Never Used Substance Use Type: Marijuana service: No Current occupational status: disabled Cognitive needs: No Hearing needs: No Vision needs: Yes Questionnaire PHQ-9 Over the last 2 weeks, how often have you been bothered by any of the following problems? 1. Little interest or pleasure in doing things: not at all 2. Feeling down, depressed, or hopeless: not at all 3. Trouble falling or staying asleep, or sleeping too much: not at all 4. Feeling tired or having little energy: several days 5. Poor appetite or overeating: not at all 6. Feeling bad about yourself - or that you are a failure or have let yourself or your family down: not at all 7. Trouble concentrating on things, such as reading the newspaper or watching television: not at all 8. Moving or speaking so slowly that other people could have noticed. Or the opposite - being so fidgety or restless that you have been moving around a lot more than usual: not at all 9. Thoughts that you would be better off or of hurting yourself in some way: not at all Total score: 1 Depression Screening Interpretation: Negative Depression Screening Done: Yes 48204 - PHQ-9 Billing: Yes Source: Developed by Drs. Seth Taylor, Fátima Mark, Kirby Torres and colleagues, with an educational ni from [employer]. Thrive Questionnaire Date Thrive assessed: 08/24/23 I am a: Patient What is your living situation today?: I have a steady place to live Within the past 12 months, did the food you bought not last and you didn't have the money to get more?: Never true Within the past 12 months, did you worry whether your food would run out before you got money to buy more?: Never true Do you have trouble paying for medicines?: No Do you have trouble getting transportation to medical appointments?: No Do you have trouble paying your heating and electricity bill?: No Do you have trouble taking care of your child, family member or friend?: No Do you have trouble with day-to-day activities such as bathing, preparing meals, shopping, managing finances, etc.?: No Are you currently unemployed and looking for a job?: No Are you interested in more education?: No Please select the resources that you would like help with: None Currently or been in a relationship where the following occur: no concerns reported THRIVE Score: 0 AUDIT C Alcohol Use Questionnaire (AUDIT-C) 1. How often do you have a drink containing alcohol?: Never 3. How often do you have six or more drinks on one occasion?: Never Total Score: 0 Score Reviewed/Action Taken: Yes CLIFTON-7 AMB Questionnaire CLIFTON-7 Date CLIFTON - 7 assessed: 08/24/23 Feeling nervous, anxious, or on edge: 0 = Not at all Not being able to stop or control worryin = Not at all Worrying too much about different things: 0 = Not at all Trouble relaxin = Not at all Being so restless that it is hard to sit still: 0 = Not at all Becoming easily annoyed or irritable: 0 = Not at all Feeling afraid as if something awful might happen: 0 = Not at all Total CLIFTON-7 score (0-4 normal; 5-9 mild; 10-14 moderate; 15-21 severe): 0 Source: Developed by Drs. Seth Taylor, Fátima Mark, Kirby Torres and colleagues, with an educational ni from [employer]. CLIFTON-7 Assessment Billing CLIFTON-7 Assessment Tool: CLIFTON-7 Assessment 88325 Review of Systems Const Denies chills and Denies fever(s) ENT Denies epistaxis and Denies nasal discharge Card Denies chest pain Resp Denies chest congestion, Denies cough and Denies hemoptysis GI Denies diarrhea and Denies nausea Skin/Breast Denies rash Neuro Reports no additional complaints Psych Reports no additional complaints Endo Reports no additional complaints Physical exam (Primary Care) Tobacco/Smoking Status: Tobacco use Status Tobacco use date assessed 08/24/23 08/24/23 08:38 Patient Tobacco Use Status Never used Tobacco 08/24/23 08:38 e-Cigarette/Vaping Use Never Used 08/24/23 08:38 PHQ-9: PHQ-9 Score PHQ-9: Total score 1 08/24/23 09:12 Depression Screening Interpretation: Negative Thrive Assessment: Date of Thrive Assessment Date Thrive assessed 08/24/23 08/24/23 08:45 Currently or been in a relationship where the following occur: no concerns reported Telehealth Telehealth Location of provider rendering services: practice address Location of patient: address on file Patient Identification confirmed using: Name, : Yes Telehealth method: video Patient verbally consented to treatment: Yes Patient verbally consented to billing insurance company: Yes Patient informed of any privacy concerns related to visit: Yes Minutes spent on Phone/Video with Pt.: 16 Assessment and Plan Assessment & Plan (1) Restless leg syndrome: Code(s): G25.81 - Restless legs syndrome (2) Osteoarthritis, hip, bilateral: Code(s): M16.0 - Bilateral primary osteoarthritis of hip Qualifiers: Osteoarthritis type: primary Qualified Code(s): M16.0 - Bilateral primary osteoarthritis of hip (3) Migraine headache: Code(s): G43.909 - Migraine, unspecified, not intractable, without status migrainosus Qualifiers: Intractability: intractable Migraine type: with aura Status migrainosus presence: without status migrainosus Qualified Code(s): G43.119 - Migraine with aura, intractable, without status migrainosus (4) Chronic GERD: Code(s): K21.9 - Gastro-esophageal reflux disease without esophagitis (5) Morbid obesity due to excess calories: Code(s): E66.01 - Morbid (severe) obesity due to excess calories (6) Risk for falls: Code(s): Z91.81 - History of falling Plan This is a telemedicine video follow-up Patient is 62-year-old female with history of migraine headaches, morbid obesity, severe osteoarthritis both hips, back spasms, Uses a Rollator with seat for ambulation. Patient says that her Rollator has got damaged, 1 of his we will is broken, she called the medical supply store and this at the need a new script they cannot change the wheel. I will start the process. Meanwhile patient is taking all her medications, and tolerating it, she continued to have pain in her hips but manageable at this time. She is complaining of feeling the need to move her left leg at night frequently otherwise she feel uncomfortable. Explained to patient that it can be restless leg syndrome, I am ordering labs and ferritin level patient is to do that to further evaluate this problem. She has an appointment in November for physical exam. Orders: Orders Comprehensive Met. Panel Today F11.20 - Opioid dependence, uncomplicated, G25.81 - Restless legs syndrome, M16.0 - Bilateral primary osteoarthritis of hip LDL Cholesterol Direct Today F11.20 - Opioid dependence, uncomplicated, G25.81 - Restless legs syndrome, M16.0 - Bilateral primary osteoarthritis of hip Complete Blood Count Auto Diff Today F11.20 - Opioid dependence, uncomplicated, G25.81 - Restless legs syndrome, M16.0 - Bilateral primary osteoarthritis of hip Ferritin Today F11.20 - Opioid dependence, uncomplicated, G25.81 - Restless legs syndrome, M16.0 - Bilateral primary osteoarthritis of hip Medications: Refilled simvastatin 10 mg PO DAILY 90 tabs 0RF tramadol 50 mg PO TID PRN 90 tabs 2RF pain 30 days meloxicam 15 mg PO DAILY 90 tabs 0RF 90 days omeprazole 20 mg PO DAILY 90 caps 0RF 90 days sumatriptan succinate 50 mg PO DAILY PRN 14 tabs 5RF for migraine On Hold cyclobenzaprine Hold Comment: pt not takeing it right now 5 mg PO ONCE 90 days PRN 90 tabs 0RF muscle spasm M54.9 - Dorsalgia, unspecified Coding Level of Care Code Tele Est Pt Level 4 (33143) Diagnoses Restless leg syndrome G25.81 Primary osteoarthritis of both hips M16.0 Osteoarthritis type: primary Intractable migraine with aura without status migrainosus G43.119 Intractability: intractable Migraine type: with aura Status migrainosus presence: without status migrainosus Chronic GERD K21.9 Morbid obesity due to excess calories E66.01 Risk for falls Z91.81 Additional Codes CLIFTON-7 Assessment Billing - CLIFTON-7 Assessment Tool: CLIFTON-7 Assessment [id number] ([id number]) Time Spent (min) 30 Comment 16 with patient, 7 charting, 7 coordination of care
== END 2023-08-24 11:52 | disposition home or self-care (01) ==
LOC: HO.HMGC 07:36
PROVIDERS: PCP Internal Medicine; Visit Provider Internal Medicine
DX: G25.81 Restless legs syndrome (principal); E66.01 Morbid (severe) obesity due to excess calories; M16.0 Bilateral primary osteoarthritis of hip; G43.119 Migraine with aura, intractable, without status migrainosus; K21.9 Gastro-esophageal reflux disease without esophagitis; Z91.81 History of falling
CPT/HCPCS: 99214

== ENCOUNTER 2023-12-15 08:57 | Outpatient (AMB) | payer OTHER, SELFPAY ==
--- NOTE | 2023-12-15 08:58 | MHC.PC.OV ---
Vital Signs 12/15/23 09:00 Height 5 ft 10 in Weight 417 lb 4 oz BMI 59.9 BP 164/96 H Blood Pressure Location Rt brachial Position Sitting Pulse 78 Pulse Source Pulse Oximeter Pulse Oximetry (%) 97 Oxygen Delivery Method Room Air Intake Visit Reasons: PE Allergies amoxicillin [AMOXICILLIN] Allergy (Unknown, Verified 12/15/23 09:02) ITCHING, rash clarithromycin [CLARITHROMYCIN] Allergy (Unknown, Verified 12/15/23 09:02) ITCHING, rash ENVIRONMENTAL Allergy (Unknown, Uncoded 12/17/20 15:45) RUNNY NOSE Medication List - Last Reconciled 12/15/23 by Valorie Clay MD [Blood pressure monitor As directed] meloxicam 15 mg PO DAILY 90 days omeprazole 20 mg PO DAILY 90 days [Rollator with seat As directed] simvastatin 10 mg PO DAILY sumatriptan succinate 50 mg PO DAILY PRN tramadol 50 mg PO TID PRN 30 days vibegron (Gemtesa) 75 mg PO DAILY Tobacco use date assessed: 12/15/23 Fall risk assessment: No Falls in past year Last assessed Fall Risk: 12/15/23 Dental Screening Dental Screen Date: 12/15/23 Did you have a dental visit in the last 12 months?: Yes Did you have a dental problem in the last 6 months where you did not have access to dental care?: No Was dental information given to patient?: Patient has dentist HPI PE HPI Details Patient is 63-year-old female came in today for physical examination Patient has a history of osteoarthritis both knees, morbid obesity, migraine headaches, GERD, lipid disorder, bladder disorder Due for labs Patient goes to [facility] and is due for visit this year Mammogram up-to-date Colonoscopy was in 2020 [facility] Her blood pressure is elevated today, patient will return next week for blood pressure recheck by nurse, going over her previous blood pressure history her blood pressure is usually controlled. Patient has been having pain left lower leg, requesting x-ray as she has a family history of bone cancer. Patient says that sometimes when she gets up from bed it hurts, however when she is walking she has not feeling any pain Her BMI is 59.9 she is enquiring about weight loss injections We talked about the side effects of nausea vomiting diarrhea, I have sent in Wegovy injection if she does pick it up, provider her insurance company covers it Patient will book a nursing visit so we can teach her how to administer it. Follow-up 3 months physical exam 1 year Tramadol script sent that patient is taking for osteoarthritis hip PFSH Medical History DJD (degenerative joint disease) Chronic back pain Depression Elevated cholesterol Spondylosis of lumbar region without myelopathy or radiculopathy Migraine headache Osteoarthritis, hip, bilateral Surgical History Hx of colonoscopy S/P laparoscopic sleeve gastrectomy Hx of dilation and curettage History of hip replacement History of wisdom tooth extraction Hx of cholecystectomy Family History Mother No problems noted. Sister No problems noted. Sister No problems noted. Son No problems noted. Father Lung cancer Social History Household Members Other:: alone Housing: House Are you a primary home care physical therapist to a significant other at home: No Do you presently have visiting nurse or other home services: No Alcohol intake: never Patient Tobacco Use Status: Never used Tobacco Years Smoked: 25 e-Cigarette/Vaping Use: Never Used Substance Use Type: Marijuana service: No Current occupational status: disabled Cognitive needs: No Hearing needs: No Vision needs: Yes Questionnaire Thrive Questionnaire Date Thrive assessed: 08/24/23 I am a: Patient What is your living situation today?: I have a steady place to live Within the past 12 months, did the food you bought not last and you didn't have the money to get more?: Never true Within the past 12 months, did you worry whether your food would run out before you got money to buy more?: Never true Please select the resources that you would like help with: None THRIVE Score: 0 AUDIT C Alcohol Use Questionnaire (AUDIT-C) 1. How often do you have a drink containing alcohol?: Never 3. How often do you have six or more drinks on one occasion?: Never Total Score: 0 Score Reviewed/Action Taken: Yes CLIFTON-7 AMB Questionnaire CLIFTON-7 Date CLIFTON - 7 assessed: 12/15/23 Feeling nervous, anxious, or on edge: 0 = Not at all Not being able to stop or control worryin = Not at all Worrying too much about different things: 0 = Not at all Trouble relaxin = Not at all Being so restless that it is hard to sit still: 0 = Not at all Becoming easily annoyed or irritable: 0 = Not at all Feeling afraid as if something awful might happen: 0 = Not at all Total CLIFTON-7 score (0-4 normal; 5-9 mild; 10-14 moderate; 15-21 severe): 0 Source: Developed by Drs. Seth Taylor, Fátima Mark, Kirby Torres and colleagues, with an educational ni from [employer]. CLIFTON-7 Assessment Billing CLIFTON-7 Assessment Tool: CLIFTON-7 Assessment 92350 Review of Systems Const Denies chills, Denies fever(s) and Denies headache(s) Eyes Denies blurry vision ENT Denies headache(s), Denies nasal discharge, Denies nasal obstruction, Denies odynophagia and Denies sinus pain Card Denies chest pain at rest and Denies chest pain with activity Resp Denies cough and Denies hemoptysis GI Denies diarrhea, Denies odynophagia, Denies vomiting and Denies hematemesis Reports as per HPI Skin/Breast Reports as per HPI Neuro Denies Neuro-related abnormal movements, Denies Abnormal speech present, Denies headache(s) and Denies Sensory deficit (Neuro) Psych Denies mood swings and Denies paranoia Endo Reports as per HPI Aguila/Lymph Reports as per HPI Aller/Immun Reports as per HPI Physical exam (Primary Care) Vital Signs: Last Vital Signs Pulse 78 12/15/23 09:00 BP 164/96 H 12/15/23 09:00 Pulse Ox 97 12/15/23 09:00 Oxygen Delivery Method Room Air 12/15/23 09:00 BMI result Body Mass Index 59.9 Tobacco/Smoking Status: Tobacco use Status Tobacco use date assessed 12/15/23 12/15/23 09:05 Patient Tobacco Use Status Never used Tobacco 12/15/23 08:59 e-Cigarette/Vaping Use Never Used 12/15/23 08:59 Thrive Assessment: Date of Thrive Assessment Date Thrive assessed 08/24/23 12/15/23 08:59 Const Other: Physical exam limited due to body habitus General: cooperative, comfortable and no acute distress Orientation/consciousness: patient oriented x3 HENMT Head: Yes normocephalic and Yes atraumatic Eyes General: appearance normal, both eyes and all related structures Pupils: Equal, round and reactive pupils present EOM: EOMs intact bilaterally Neck Neck: Yes supple and No lymphadenopathy Thyroid: Thyroid normal Lymphatic: no lymphadenopathy noted Resp Effort & Inspection: normal respiratory effort and able to speak in complete sentences Auscultation: clear to auscultation bilaterally Cardio Heart sounds: S1 normal heart sound present and S2 normal heart sound present GI Palpation (GI): Soft to palpation and nontender Auscultation: normal bowel sounds General: Yes no CVA tenderness Back/Spine/Pelvis Back: no CVA tenderness Skin General skin exam: elasticity normal and turgor normal Neuro General: patient oriented x3 Cranial nerves: Yes Equal, round and reactive pupils present Speech: No Abnormal speech present Sensory Exam: No Sensory deficit (Neuro) Extrem General: Yes normal exam except as noted and No edema Assessment and Plan Assessment & Plan (1) Encounter for general adult medical examination with abnormal findings: Code(s): Z00.01 - Encounter for general adult medical examination with abnormal findings (2) Morbid obesity due to excess calories: Code(s): E66.01 - Morbid (severe) obesity due to excess calories (3) Lower leg pain: Code(s): M79.669 - Pain in unspecified lower leg Qualifiers: Laterality: left Qualified Code(s): M79.662 - Pain in left lower leg (4) Chronic GERD: Code(s): K21.9 - Gastro-esophageal reflux disease without esophagitis (5) Lipid disorder: Code(s): E78.9 - Disorder of lipoprotein metabolism, unspecified (6) Bladder disorder: Code(s): N32.9 - Bladder disorder, unspecified (7) Chronic narcotic dependence: Code(s): F11.20 - Opioid dependence, uncomplicated (8) Migraine headache: Code(s): G43.909 - Migraine, unspecified, not intractable, without status migrainosus Qualifiers: Migraine type: with aura Status migrainosus presence: without status migrainosus Intractability: intractable Qualified Code(s): G43.119 - Migraine with aura, intractable, without status migrainosus (9) Osteoarthritis of knees, bilateral: Code(s): M17.0 - Bilateral primary osteoarthritis of knee Qualifiers: Osteoarthritis type: primary Qualified Code(s): M17.0 - Bilateral primary osteoarthritis of knee Plan Patient is 63-year-old female came in today for physical examination Patient has a history of osteoarthritis both knees, morbid obesity, migraine headaches, GERD, lipid disorder, bladder disorder Due for labs Patient goes to [facility] and is due for visit this year Mammogram up-to-date Colonoscopy was in 2020 [facility] Her blood pressure is elevated today, patient will return next week for blood pressure recheck by nurse, going over her previous blood pressure history her blood pressure is usually controlled. Patient has been having pain left lower leg, requesting x-ray as she has a family history of bone cancer. Patient says that sometimes when she gets up from bed it hurts, however when she is walking she has not feeling any pain Her BMI is 59.9 she is enquiring about weight loss injections We talked about the side effects of nausea vomiting diarrhea, I have sent in Wegovy injection if she does pick it up, provider her insurance company covers it Patient will book a nursing visit so we can teach her how to administer it. Follow-up 3 months physical exam 1 year Tramadol script sent that patient is taking for osteoarthritis hip Orders: Orders Hemoglobin A1c Today E66.01 - Morbid (severe) obesity due to excess calories XR tibia fibula LT 2V Today M79.669 - Pain in unspecified lower leg Medications: New Wegovy (semaglutide (weight loss)) administer weeks 1 through 4 of therapy 0.25 mg (0.5 mL) subcut QWEEK 2 mL 1RF NS E66.01 - Morbid (severe) obesity due to excess calories Refilled meloxicam 15 mg PO DAILY 90 days 90 tabs 0RF sumatriptan succinate 50 mg PO DAILY PRN 14 tabs 5RF for migraine tramadol 50 mg PO TID 30 days PRN 90 tabs 2RF pain Coding Level of Care Code Est Pt Prev Care >65y(61832) Diagnoses Encounter for general adult medical examination with abnormal findings Z00.01 Morbid obesity due to excess calories E66.01 Pain of left lower leg M79.662 Laterality: left Chronic GERD K21.9 Lipid disorder E78.9 Bladder disorder N32.9 Chronic narcotic dependence F11.20 Intractable migraine with aura without status migrainosus G43.119 Migraine type: with aura Status migrainosus presence: without status migrainosus Intractability: intractable Primary osteoarthritis of both knees M17.0 Osteoarthritis type: primary Additional Codes CLIFTON-7 Assessment Billing - CLIFTON-7 Assessment Tool: CLIFTON-7 Assessment 40671 ([id number])
[2023-12-15 09:00] VITALS: BP 164/96; PULSE 78; O2SAT 97; BMI 59.9
== END 2023-12-15 09:23 | disposition home or self-care (01) ==
PROVIDERS: Visit Provider Internal Medicine
DX: Z00.01 Encounter for general adult medical examination with abnormal findings (principal); M79.662 Pain in left lower leg; E66.01 Morbid (severe) obesity due to excess calories; F11.20 Opioid dependence, uncomplicated; Z68.43 Body mass index [BMI] 50.0-59.9, adult; K21.9 Gastro-esophageal reflux disease without esophagitis; E78.9 Disorder of lipoprotein metabolism, unspecified; N32.9 Bladder disorder, unspecified; G43.119 Migraine with aura, intractable, without status migrainosus; M17.0 Bilateral primary osteoarthritis of knee
CPT/HCPCS: 99213; 99397

== ENCOUNTER 2023-12-20 09:30 | Outpatient (REF) | payer OTHER, SELFPAY ==
--- NOTE | ~2023-12-20 | XR_ITS ---
EXAMINATION: XR TIBIA AND FIBULA, LEFT CLINICAL INFORMATION: Left lower leg pain. COMPARISON: Left knee radiographs dated 10/01/2018. TECHNIQUE: AP and lateral views of the left tibia and fibula were obtained. FINDINGS: Circumferential soft tissue swelling/edema. There are a few scattered phleboliths. No abnormal soft tissue calcification. Partially visualized tract compartmental osteophyte arthritis within the left knee. No tibial or fibular fracture. No concerning lytic or blastic osseous lesion. XR/XR tibia fibula LT 2V IMPRESSION: 1. Circumferential soft tissue swelling/edema without acute osseous abnormality. 2. Degenerative arthritis at the left knee.
[2023-12-20 13:17] LABS: MANUAL DIFF FLAG NO
[2023-12-20 13:22] LABS: Basophils Percent Auto 0.5 % (0-2); Eosinophils Absolute Auto 0.1 X10*3/uL (0.0-0.4); Eosinophils Percent Auto 2.2 % (0-4); Hematocrit 44.2 % (37.0-47.0); Imm Gran Abs Auto 0.02 X10*3/uL (0.00-0.03); Imm Gran Pct Auto 0.3 % (0.0-0.4); Lymphocytes Absolute Auto 1.2 X10*3/uL (1.2-4.9); Lymphocytes Percent Auto 20.6 % (20-40); Mean Corpuscular HGB Conc 31.7 g/dl (31.0-35.0); Mean Corpuscular Volume 91.5 fL (80.0-98.0); Mean Platelet Volume 11.1 fL (9.4-12.3); Monocytes Absolute Auto 0.3 X10*3/uL (0.1-1.2); Monocytes Percent Auto 5.4 % (2-11); Neutrophils Absolute Auto 4.1 x10*3/uL (2.0-8.3); Platelet Count 320 X10*3/uL (160-400); Red Blood Count 4.83 X10*6/uL (4.20-5.50); Red Cell Distribution Width 13.2 % (11.0-16.0); White Blood Count 5.8 X10*3/uL (4.8-10.8)
[2023-12-20 13:33] LABS: Estimated Average Glucose 103 mg/dL; Hemoglobin A1c % 5.2 % (<6.0)
[2023-12-20 13:42] LABS: Alanine Aminotransferase 16 U/L (0-31); Albumin Level 4.1 g/dL (3.5-5.0); Alkaline Phosphatase 89 U/L (39-117); Anion Gap 15 (12-20); Aspartate Amino Transferase 17 U/L (5-31); Bilirubin Total 0.6 mg/dL (0.0-1.0); Blood Urea Nitrogen 19 mg/dL (9-16); Calcium 9.7 mg/dL (8.4-10.2); Carbon Dioxide 25 mmol/L (22-29); Chloride 107 mmol/L (96-108); Estimated Glomerular Filt Rate > 60; Glucose Random 99 mg/dL (60-115); Potassium 4.6 mmol/L (3.3-5.1); Sodium 142 mmol/L (135-145); Total Protein 7.1 g/dL (6.5-8.0)
[2023-12-20 13:57] LABS: Ferritin 17 ng/mL (10-250)
[2023-12-21 14:24] LABS: LDL Cholesterol Direct 121 mg/dL (<100)
== END 2023-12-20 09:31 | disposition home or self-care (01) ==
LOC: HO.HMGCX 09:30
PROVIDERS: PCP Internal Medicine; Visit Provider Internal Medicine
DX: M79.662 Pain in left lower leg (principal); M16.0 Bilateral primary osteoarthritis of hip; F11.20 Opioid dependence, uncomplicated; G25.81 Restless legs syndrome; E66.01 Morbid (severe) obesity due to excess calories
CPT/HCPCS: 36415; 73590; 80053; 82728; 83036; 83721; 85025

== ENCOUNTER 2024-03-22 13:59 | Outpatient (AMB) | payer MEDICARE, SELFPAY ==
[2024-03-22 14:00] VITALS: BP 142/88; PULSE 74; O2SAT 99; BMI 59.0
--- NOTE | 2024-03-22 14:00 | MHC.PC.OV ---
Vital Signs 03/22/24 14:00 Height 5 ft 10 in Weight 411 lb 6 oz BMI 59.0 BP 142/88 H Blood Pressure Location Lt brachial Position Sitting Pulse 74 Pulse Source Pulse Oximeter Pulse Oximetry (%) 99 Oxygen Delivery Method Room Air Intake Visit Reasons: 3 month follow up Allergies amoxicillin [AMOXICILLIN] Allergy (Unknown, Verified 03/22/24 14:00) ITCHING, rash clarithromycin [CLARITHROMYCIN] Allergy (Unknown, Verified 03/22/24 14:00) ITCHING, rash ENVIRONMENTAL Allergy (Unknown, Uncoded 12/17/20 15:45) RUNNY NOSE Medication List - Last Reconciled 03/22/24 by Valorie Clay MD atenolol 25 mg PO DAILY [Blood pressure monitor As directed] blood pressure test kit-large As directed meloxicam 15 mg PO DAILY 90 days omeprazole 20 mg PO DAILY 90 days [Rollator with seat As directed] simvastatin 10 mg PO DAILY sumatriptan succinate 50 mg PO DAILY PRN tramadol 50 mg PO TID PRN 30 days vibegron (Gemtesa) 75 mg PO DAILY Wegovy (semaglutide (weight loss)) 0.25 mg (0.5 mL) subcut QWEEK NS Tobacco use date assessed: 03/22/24 Fall risk assessment: No Falls in past year Last assessed Fall Risk: 03/22/24 Dental Screening Dental Screen Date: 03/22/24 Did you have a dental visit in the last 12 months?: Yes Did you have a dental problem in the last 6 months where you did not have access to dental care?: No Was dental information given to patient?: Patient has dentist HPI 3 month follow up HPI Details Patient is 63-year-old female came in today for her regular three-month follow-up appointment Patient suffers from severe osteoarthritis both hips and knees She is on tramadol for pain management patient is complying with the treatment plan. She also take meloxicam 15 mg GERD is stable with omeprazole 20 mg Lipids controlled with simvastatin 10 mg Migraine headaches stable patient is on sumatriptan 50 mg as needed Morbid obesity: We tried to approve Wegovy injection with the patient but they were declined Blood pressure is slightly elevated however it is usually running in 130s She is taking atenolol 25 mg, complaining of feeling tired in the afternoon which could be a side effect of medication Labs done in November reviewed Follow-up 3 months [facility] Medical History DJD (degenerative joint disease) Chronic back pain Depression Elevated cholesterol Spondylosis of lumbar region without myelopathy or radiculopathy Migraine headache Osteoarthritis, hip, bilateral Surgical History Hx of colonoscopy S/P laparoscopic sleeve gastrectomy Hx of dilation and curettage History of hip replacement History of wisdom tooth extraction Hx of cholecystectomy Family History Mother No problems noted. Sister No problems noted. Sister No problems noted. Son No problems noted. Father Lung cancer Social History Household Members Other:: alone Housing: House Are you a primary animal care service worker to a significant other at home: No Do you presently have visiting nurse or other home services: No Alcohol intake: never Patient Tobacco Use Status: Never used Tobacco Years Smoked: 25 e-Cigarette/Vaping Use: Never Used Substance Use Type: Marijuana service: No Current occupational status: disabled Cognitive needs: No Hearing needs: No Vision needs: Yes Questionnaire Thrive Questionnaire Date Thrive assessed: 03/19/24 I am a: Patient What is your living situation today?: I have a steady place to live Within the past 12 months, did the food you bought not last and you didn't have the money to get more?: Never true Within the past 12 months, did you worry whether your food would run out before you got money to buy more?: Never true Do you have trouble paying for medicines?: No Do you have trouble getting transportation to medical appointments?: No Do you have trouble paying your heating and electricity bill?: No Do you have trouble taking care of your child, family member or friend?: No Do you have trouble with day-to-day activities such as bathing, preparing meals, shopping, managing finances, etc.?: No Are you currently unemployed and looking for a job?: No Are you interested in more education?: No Please select the resources that you would like help with: None Currently or been in a relationship where the following occur: No concerns reported THRIVE Score: 0 AUDIT C Alcohol Use Questionnaire (AUDIT-C) 1. How often do you have a drink containing alcohol?: Never Total Score: 0 CLIFTON-7 AMB Questionnaire CLIFTON-7 Date CLIFTON - 7 assessed: 12/15/23 Feeling nervous, anxious, or on edge: 0 = Not at all Not being able to stop or control worryin = Not at all Worrying too much about different things: 0 = Not at all Trouble relaxin = Not at all Being so restless that it is hard to sit still: 0 = Not at all Becoming easily annoyed or irritable: 0 = Not at all Feeling afraid as if something awful might happen: 0 = Not at all Total CLIFTON-7 score (0-4 normal; 5-9 mild; 10-14 moderate; 15-21 severe): 0 Source: Developed by Drs. Seth Taylor, Fátima Mark, Kirby Torres and colleagues, with an educational ni from [employer]. Review of Systems Const Denies chills and Denies fever(s) ENT Denies epistaxis and Denies nasal discharge Card Denies chest pain Resp Denies chest congestion, Denies cough and Denies hemoptysis GI Denies diarrhea and Denies nausea Skin/Breast Denies rash Neuro Reports no additional complaints Psych Reports no additional complaints Endo Reports no additional complaints Physical exam (Primary Care) Vital Signs: Last Vital Signs Pulse 74 03/22/24 14:00 BP 142/88 H 03/22/24 14:00 Pulse Ox 99 03/22/24 14:00 Oxygen Delivery Method Room Air 03/22/24 14:00 BMI result Body Mass Index 59.0 Tobacco/Smoking Status: Tobacco use Status Tobacco use date assessed 03/22/24 03/22/24 14:03 Patient Tobacco Use Status Never used Tobacco 03/22/24 14:03 e-Cigarette/Vaping Use Never Used 03/22/24 14:03 Thrive Assessment: Date of Thrive Assessment Date Thrive assessed 03/19/24 03/22/24 14:03 Currently or been in a relationship where the following occur: No concerns reported Const General: cooperative, comfortable and no acute distress Orientation/consciousness: patient oriented x3 HENMT Head: Yes normocephalic Eyes General: appearance normal, both eyes and all related structures Neck Neck: Yes supple Resp Effort & Inspection: normal respiratory effort, no cough and no stridor Cardio Rhythm: regular rhythm Heart sounds: S1 normal heart sound present and S2 normal heart sound present Skin General skin exam: turgor normal Neuro General: patient oriented x3, tone normal and moves all extremities Assessment and Plan Assessment & Plan (1) Hypertension, essential: Code(s): I10 - Essential (primary) hypertension (2) Lipid disorder: Code(s): E78.9 - Disorder of lipoprotein metabolism, unspecified (3) Morbid obesity due to excess calories: Code(s): E66.01 - Morbid (severe) obesity due to excess calories (4) Chronic GERD: Code(s): K21.9 - Gastro-esophageal reflux disease without esophagitis (5) Bladder disorder: Code(s): N32.9 - Bladder disorder, unspecified (6) Migraine headache: Code(s): G43.909 - Migraine, unspecified, not intractable, without status migrainosus Qualifiers: Migraine type: with aura Status migrainosus presence: without status migrainosus Intractability: intractable Qualified Code(s): G43.119 - Migraine with aura, intractable, without status migrainosus (7) Moderate tramadol dependence: Code(s): F11.20 - Opioid dependence, uncomplicated (8) Restless leg syndrome: Code(s): G25.81 - Restless legs syndrome (9) Osteoarthritis, hip, bilateral: Code(s): M16.0 - Bilateral primary osteoarthritis of hip Qualifiers: Osteoarthritis type: primary Qualified Code(s): M16.0 - Bilateral primary osteoarthritis of hip (10) Risk for falls: Code(s): Z91.81 - History of falling Plan Patient is 63-year-old female came in today for her regular three-month follow-up appointment Patient suffers from severe osteoarthritis both hips and knees She is on tramadol for pain management patient is complying with the treatment plan. She also take meloxicam 15 mg GERD is stable with omeprazole 20 mg Lipids controlled with simvastatin 10 mg Migraine headaches stable patient is on sumatriptan 50 mg as needed Morbid obesity: We tried to approve Wegovy injection with the patient but they were declined Blood pressure is slightly elevated however it is usually running in 130s She is taking atenolol 25 mg, complaining of feeling tired in the afternoon which could be a side effect of medication Labs done in November reviewed Follow-up 3 months Medications: Refilled tramadol 50 mg PO TID 30 days PRN 90 tabs 2RF pain Coding Level of Care Code Est Pt Level 4 (37172) Complex EM visit Add On G2211 Diagnoses Hypertension, essential I10 Lipid disorder E78.9 Morbid obesity due to excess calories E66.01 Chronic GERD K21.9 Bladder disorder N32.9 Intractable migraine with aura without status migrainosus G43.119 Migraine type: with aura Status migrainosus presence: without status migrainosus Intractability: intractable Moderate tramadol dependence F11.20 Restless leg syndrome G25.81 Primary osteoarthritis of both hips M16.0 Osteoarthritis type: primary Risk for falls Z91.81
== END 2024-03-22 14:20 | disposition home or self-care (01) ==
PROVIDERS: PCP Internal Medicine; Visit Provider Internal Medicine
DX: I10 Essential (primary) hypertension (principal); E66.01 Morbid (severe) obesity due to excess calories; Z68.43 Body mass index [BMI] 50.0-59.9, adult; F11.20 Opioid dependence, uncomplicated; K21.9 Gastro-esophageal reflux disease without esophagitis; E78.9 Disorder of lipoprotein metabolism, unspecified; N32.9 Bladder disorder, unspecified; G43.119 Migraine with aura, intractable, without status migrainosus; G25.81 Restless legs syndrome; M16.0 Bilateral primary osteoarthritis of hip; Z91.81 History of falling
CPT/HCPCS: 99214; G2211

== ENCOUNTER 2024-06-25 11:03 | Outpatient (AMB) | payer OTHER, SELFPAY ==
[2024-06-25 11:10] VITALS: BP 136/82; PULSE 67; O2SAT 97; BMI 58.7
--- NOTE | 2024-06-25 11:10 | MHC.PC.OV ---
Vital Signs 06/25/24 11:10 Height 5 ft 10 in Weight 409 lb BMI 58.7 BP 136/82 Blood Pressure Location Lt brachial Position Sitting Pulse 67 Pulse Source Pulse Oximeter Pulse Oximetry (%) 97 Oxygen Delivery Method Room Air Intake Visit Reasons: 3 mon f/u Allergies amoxicillin [AMOXICILLIN] Allergy (Unknown, Verified 06/25/24 11:13) ITCHING, rash clarithromycin [CLARITHROMYCIN] Allergy (Unknown, Verified 06/25/24 11:13) ITCHING, rash ENVIRONMENTAL Allergy (Unknown, Uncoded 12/17/20 15:45) RUNNY NOSE Medication List - Last Reconciled 06/25/24 by Valorie Clay MD atenolol 25 mg PO DAILY [Blood pressure monitor As directed] blood pressure test kit-large As directed meloxicam 15 mg PO DAILY 90 days omeprazole 20 mg PO DAILY 90 days [Rollator with seat As directed] simvastatin 10 mg PO DAILY sumatriptan succinate 50 mg PO DAILY PRN tramadol 50 mg PO TID PRN 30 days vibegron (Gemtesa) 75 mg PO DAILY Tobacco use date assessed: 06/25/24 Fall risk assessment: No Falls in past year Last assessed Fall Risk: 06/25/24 Dental Screening Dental Screen Date: 06/25/24 Did you have a dental visit in the last 12 months?: Yes Did you have a dental problem in the last 6 months where you did not have access to dental care?: No Was dental information given to patient?: Patient has dentist HPI 3 mon f/u HPI Details Chief Complaint Desire to address weight management for potential knee surgery due to worsening arthritis. Assessment and Plan 63-year-old female with a history of hypertension, GERD, and osteoarthritis, presenting for a routine follow-up appointment to address obesity-related concerns and medication refills. The patient reports a recent mild COVID-19 infection approximately six weeks prior, with no severe symptoms or complications noted. Her current medication regimen includes atenolol, omeprazole, and meloxicam. Concerns about worsening arthritis in the hands and the need for knee surgery underscore the importance of weight management. The plan includes initiating semaglutide to aid in weight loss while monitoring for potential side effects such as nausea, pancreatic inflammation, and thyroid issues. There is a discussion of the potential for depression with semaglutide, acknowledging the patient's history. 1. Hypertension Ongoing management with atenolol. The patient's blood pressure was reported as stable. No adjustments in medication were necessary at this time. 2. Depression History Of Discussed the potential worsening of depression with semaglutide. Patient was advised to monitor mood changes and report any depressive symptoms. No active depressive symptoms noted during this visit. 3. Osteoarthritis Continued management with meloxicam as current treatment. The patient expressed concerns regarding worsening arthritis in hands, particularly affecting mobility. Weight loss was emphasized as a daley component in mitigating symptoms and preparing for potential knee surgery. 4. Gastroesophageal Reflux Disease Gerd Current management with omeprazole continues. The patient reported adherence to medication with no new symptoms or concerns. 5. Obesity Discussed initiating semaglutide to aid in weight reduction, crucial for potential knee surgery. The patient is advised regarding injection technique and to coordinate with the nursing staff for training. A follow-up plan to monitor weight loss and tolerance of the medication was set, with potential side effects including nausea and depression addressed. Baseline labs including thyroid and pancreatic function were ordered. Problem List - COVID-19 (Recovered) - Obesity - Osteoarthritis - Hypertension - Gastroesophageal Reflux Disease (GERD) - Depression (History of) Patient Instructions - Schedule blood tests, including fasting labs, to assess thyroid and pancreas function. - Upon receiving semaglutide, contact the clinic to arrange for injection training with a nurse. - Report any new or worsening symptoms of nausea or mood changes. - Maintain prescribed medication regimen for atenolol, omeprazole, and meloxicam. - Focus on incorporating diet and exercise as part of the weight management plan. - Return for follow-up within one month to monitor progress and medication effects. [facility] Medical History DJD (degenerative joint disease) Chronic back pain Depression Elevated cholesterol Spondylosis of lumbar region without myelopathy or radiculopathy Migraine headache Osteoarthritis, hip, bilateral Surgical History Hx of colonoscopy S/P laparoscopic sleeve gastrectomy Hx of dilation and curettage History of hip replacement History of wisdom tooth extraction Hx of cholecystectomy Family History Mother No problems noted. Sister No problems noted. Sister No problems noted. Son No problems noted. Father Lung cancer Social History Household Members Other:: alone Housing: House Are you a primary healthcare applications analyst to a significant other at home: No Do you presently have visiting nurse or other home services: No Alcohol intake: never Patient Tobacco Use Status: Never used Tobacco Years Smoked: 25 e-Cigarette/Vaping Use: Never Used Substance Use Type: Marijuana service: No Current occupational status: disabled Cognitive needs: No Hearing needs: No Vision needs: Yes Questionnaire PHQ-9 Over the last 2 weeks, how often have you been bothered by any of the following problems? 1. Little interest or pleasure in doing things: not at all 2. Feeling down, depressed, or hopeless: not at all 3. Trouble falling or staying asleep, or sleeping too much: not at all 4. Feeling tired or having little energy: not at all 5. Poor appetite or overeating: not at all 6. Feeling bad about yourself - or that you are a failure or have let yourself or your family down: not at all 7. Trouble concentrating on things, such as reading the newspaper or watching television: not at all 8. Moving or speaking so slowly that other people could have noticed. Or the opposite - being so fidgety or restless that you have been moving around a lot more than usual: not at all 9. Thoughts that you would be better off or of hurting yourself in some way: not at all Total score: 0 Depression Screening Interpretation: Negative Depression Screening Done: Yes 65334 - PHQ-9 Billing: Yes Source: Developed by Drs. Seth Taylor, Fátima Mark, Kirby Torres and colleagues, with an educational ni from [employer]. Thrive Questionnaire Date Thrive assessed: 06/25/24 I am a: Patient What is your living situation today?: I have a steady place to live Within the past 12 months, did the food you bought not last and you didn't have the money to get more?: Never true Within the past 12 months, did you worry whether your food would run out before you got money to buy more?: Never true Do you have trouble paying for medicines?: No Do you have trouble getting transportation to medical appointments?: No Do you have trouble paying your heating and electricity bill?: No Do you have trouble taking care of your child, family member or friend?: No Do you have trouble with day-to-day activities such as bathing, preparing meals, shopping, managing finances, etc.?: No Are you currently unemployed and looking for a job?: No Are you interested in more education?: No Please select the resources that you would like help with: None Currently or been in a relationship where the following occur: No concerns reported THRIVE Score: 0 AUDIT C Alcohol Use Questionnaire (AUDIT-C) 1. How often do you have a drink containing alcohol?: Never 3. How often do you have six or more drinks on one occasion?: Never Total Score: 0 Score Reviewed/Action Taken: Yes CLIFTON-7 AMB Questionnaire CLIFTON-7 Date CLIFTON - 7 assessed: 12/15/23 Source: Developed by Drs. Seth Taylor, Fátima Mark, Kirby Torres and colleagues, with an educational ni from [employer]. Review of Systems Const Denies chills and Denies fever(s) ENT Denies epistaxis and Denies nasal discharge Card Denies chest pain Resp Denies chest congestion, Denies cough and Denies hemoptysis GI Denies diarrhea and Denies nausea Skin/Breast Denies rash Neuro Reports no additional complaints Psych Reports no additional complaints Endo Reports no additional complaints Physical exam (Primary Care) Vital Signs: Last Vital Signs Pulse 67 06/25/24 11:10 BP 136/82 06/25/24 11:10 Pulse Ox 97 06/25/24 11:10 Oxygen Delivery Method Room Air 06/25/24 11:10 BMI result Body Mass Index 58.7 Tobacco/Smoking Status: Tobacco use Status Tobacco use date assessed 06/25/24 06/25/24 11:13 Patient Tobacco Use Status Never used Tobacco 06/25/24 11:13 e-Cigarette/Vaping Use Never Used 06/25/24 11:13 PHQ-9: PHQ-9 Score PHQ-9: Total score 0 06/25/24 11:13 Depression Screening Interpretation: Negative Thrive Assessment: Date of Thrive Assessment Date Thrive assessed 06/25/24 06/25/24 11:13 Currently or been in a relationship where the following occur: No concerns reported Const General: cooperative, comfortable and no acute distress Orientation/consciousness: patient oriented x3 HENMT Head: Yes normocephalic Eyes General: appearance normal, both eyes and all related structures Neck Neck: Yes supple Resp Effort & Inspection: normal respiratory effort, no cough and no stridor Cardio Rhythm: regular rhythm Heart sounds: S1 normal heart sound present and S2 normal heart sound present Skin General skin exam: turgor normal Neuro General: patient oriented x3, tone normal and moves all extremities Coding Level of Care Code Est Pt Level 4 (43010) Complex EM visit Add On G2211 Diagnoses Primary osteoarthritis of both hips M16.0 Osteoarthritis type: primary Hypertension, essential I10 Spondylosis of lumbar region without myelopathy or radiculopathy M47.816 Moderate tramadol dependence F11.20 Morbid obesity due to excess calories E66.01 Lipid disorder E78.9 Chronic GERD K21.9 Additional Codes PHQ-9 - 23727 - PHQ-9 Billing: Yes ([id number]) Assessment & Plan Assessment & Plan (1) Osteoarthritis, hip, bilateral: Code(s): M16.0 - Bilateral primary osteoarthritis of hip Category: Medical Qualifiers: Osteoarthritis type: primary Qualified Code(s): M16.0 - Bilateral primary osteoarthritis of hip (2) Hypertension, essential: Code(s): I10 - Essential (primary) hypertension Category: Medical (3) Spondylosis of lumbar region without myelopathy or radiculopathy: Code(s): M47.816 - Spondylosis without myelopathy or radiculopathy, lumbar region Category: Medical (4) Moderate tramadol dependence: Code(s): F11.20 - Opioid dependence, uncomplicated Category: Medical (5) Morbid obesity due to excess calories: Code(s): E66.01 - Morbid (severe) obesity due to excess calories Category: Medical (6) Lipid disorder: Code(s): E78.9 - Disorder of lipoprotein metabolism, unspecified Category: Medical (7) Chronic GERD: Code(s): K21.9 - Gastro-esophageal reflux disease without esophagitis Category: Medical Plan Chief Complaint Desire to address weight management for potential knee surgery due to worsening arthritis. Assessment and Plan 63-year-old female with a history of hypertension, GERD, and osteoarthritis, presenting for a routine follow-up appointment to address obesity-related concerns and medication refills. The patient reports a recent mild COVID-19 infection approximately six weeks prior, with no severe symptoms or complications noted. Her current medication regimen includes atenolol, omeprazole, and meloxicam. Concerns about worsening arthritis in the hands and the need for knee surgery underscore the importance of weight management. The plan includes initiating semaglutide to aid in weight loss while monitoring for potential side effects such as nausea, pancreatic inflammation, and thyroid issues. There is a discussion of the potential for depression with semaglutide, acknowledging the patient's history. 1. Hypertension Ongoing management with atenolol. The patient's blood pressure was reported as stable. No adjustments in medication were necessary at this time. 2. Depression History Of Discussed the potential worsening of depression with semaglutide. Patient was advised to monitor mood changes and report any depressive symptoms. No active depressive symptoms noted during this visit. 3. Osteoarthritis Continued management with meloxicam as current treatment. The patient expressed concerns regarding worsening arthritis in hands, particularly affecting mobility. Weight loss was emphasized as a daley component in mitigating symptoms and preparing for potential knee surgery. 4. Gastroesophageal Reflux Disease Gerd Current management with omeprazole continues. The patient reported adherence to medication with no new symptoms or concerns. 5. Obesity Discussed initiating semaglutide to aid in weight reduction, crucial for potential knee surgery. The patient is advised regarding injection technique and to coordinate with the nursing staff for training. A follow-up plan to monitor weight loss and tolerance of the medication was set, with potential side effects including nausea and depression addressed. Baseline labs including thyroid and pancreatic function were ordered. Problem List - COVID-19 (Recovered) - Obesity - Osteoarthritis - Hypertension - Gastroesophageal Reflux Disease (GERD) - Depression (History of) Patient Instructions - Schedule blood tests, including fasting labs, to assess thyroid and pancreas function. - Upon receiving semaglutide, contact the clinic to arrange for injection training with a nurse. - Report any new or worsening symptoms of nausea or mood changes. - Maintain prescribed medication regimen for atenolol, omeprazole, and meloxicam. - Focus on incorporating diet and exercise as part of the weight management plan. - Return for follow-up within one month to monitor progress and medication effects. Orders: Orders Complete Blood Count Auto Diff Today E66.01 - Morbid (severe) obesity due to excess calories, E78.9 - Disorder of lipoprotein metabolism, unspecified, K21.9 - Gastro-esophageal reflux disease without esophagitis, M16.0 - Bilateral primary osteoarthritis of hip, M47.816 - Spondylosis without myelopathy or radiculopathy, lumbar region, R68.89 - Other general symptoms and signs TSH reflex Free T4 Today E66.01 - Morbid (severe) obesity due to excess calories, E78.9 - Disorder of lipoprotein metabolism, unspecified, K21.9 - Gastro-esophageal reflux disease without esophagitis, M16.0 - Bilateral primary osteoarthritis of hip, M47.816 - Spondylosis without myelopathy or radiculopathy, lumbar region, R68.89 - Other general symptoms and signs Amylase Today E66.01 - Morbid (severe) obesity due to excess calories, E78.9 - Disorder of lipoprotein metabolism, unspecified, K21.9 - Gastro-esophageal reflux disease without esophagitis, M16.0 - Bilateral primary osteoarthritis of hip, M47.816 - Spondylosis without myelopathy or radiculopathy, lumbar region, R68.89 - Other general symptoms and signs Hemoglobin A1c Today E66.01 - Morbid (severe) obesity due to excess calories, E78.9 - Disorder of lipoprotein metabolism, unspecified, K21.9 - Gastro-esophageal reflux disease without esophagitis, M16.0 - Bilateral primary osteoarthritis of hip, M47.816 - Spondylosis without myelopathy or radiculopathy, lumbar region, R68.89 - Other general symptoms and signs Comprehensive [place]. Panel Fast Today E66.01 - Morbid (severe) obesity due to excess calories, E78.9 - Disorder of lipoprotein metabolism, unspecified, K21.9 - Gastro-esophageal reflux disease without esophagitis, M16.0 - Bilateral primary osteoarthritis of hip, M47.816 - Spondylosis without myelopathy or radiculopathy, lumbar region, R68.89 - Other general symptoms and signs Lipid Panel Today E66.01 - Morbid (severe) obesity due to excess calories, E78.9 - Disorder of lipoprotein metabolism, unspecified, K21.9 - Gastro-esophageal reflux disease without esophagitis, M16.0 - Bilateral primary osteoarthritis of hip, M47.816 - Spondylosis without myelopathy or radiculopathy, lumbar region, R68.89 - Other general symptoms and signs Vitamin D 25-OH (D2 and D3) Today E66.01 - Morbid (severe) obesity due to excess calories, E78.9 - Disorder of lipoprotein metabolism, unspecified, K21.9 - Gastro-esophageal reflux disease without esophagitis, M16.0 - Bilateral primary osteoarthritis of hip, M47.816 - Spondylosis without myelopathy or radiculopathy, lumbar region, R68.89 - Other general symptoms and signs Lipase Today E66.01 - Morbid (severe) obesity due to excess calories, E78.9 - Disorder of lipoprotein metabolism, unspecified, K21.9 - Gastro-esophageal reflux disease without esophagitis, M16.0 - Bilateral primary osteoarthritis of hip, M47.816 - Spondylosis without myelopathy or radiculopathy, lumbar region, R68.89 - Other general symptoms and signs Medications: Luis Daniel Elias (semaglutide (weight loss)) administer weeks 1 through 4 of therapy 0.25 mg (0.5 mL) subcut QWEEK 2 mL 1RF NS E66.01 - Morbid (severe) obesity due to excess calories, E78.9 - Disorder of lipoprotein metabolism, unspecified, K21.9 - Gastro-esophageal reflux disease without esophagitis, M16.0 - Bilateral primary osteoarthritis of hip, M47.816 - Spondylosis without myelopathy or radiculopathy, lumbar region, R68.89 - Other general symptoms and signs Refilled simvastatin 10 mg PO DAILY 90 tabs 0RF tramadol 50 mg PO TID 30 days PRN 90 tabs 2RF pain atenolol 25 mg PO DAILY 90 tabs 0RF meloxicam 15 mg PO DAILY 90 days 90 tabs 0RF omeprazole 20 mg PO DAILY 90 days 90 caps 0RF sumatriptan succinate 50 mg PO DAILY PRN 14 tabs 5RF for migraine
== END 2024-06-25 14:32 | disposition home or self-care (01) ==
PROVIDERS: PCP Internal Medicine; Visit Provider Internal Medicine
DX: I10 Essential (primary) hypertension (principal); F11.20 Opioid dependence, uncomplicated; E66.01 Morbid (severe) obesity due to excess calories; Z68.43 Body mass index [BMI] 50.0-59.9, adult; M16.0 Bilateral primary osteoarthritis of hip; M47.816 Spondylosis without myelopathy or radiculopathy, lumbar region; E78.9 Disorder of lipoprotein metabolism, unspecified; K21.9 Gastro-esophageal reflux disease without esophagitis

== ENCOUNTER → 2024-06-25 11:03 | Outpatient (BNVA) | payer MEDICARE, SELFPAY | PROVIDERS: PCP Internal Medicine; Visit Provider Internal Medicine | DX: M16.0 Bilateral primary osteoarthritis of hip (principal); I10 Essential (primary) hypertension; M47.816 Spondylosis without myelopathy or radiculopathy, lumbar region; F11.20 Opioid dependence, uncomplicated; E66.01 Morbid (severe) obesity due to excess calories; E78.9 Disorder of lipoprotein metabolism, unspecified; K21.9 Gastro-esophageal reflux disease without esophagitis | CPT/HCPCS: 96127; 99212 ==

== ENCOUNTER 2024-11-07 08:44 | Outpatient (AMB) | payer OTHER, SELFPAY ==
--- NOTE | 2024-11-07 08:42 | A.OFFPC_ITS ---
Intake Visit Reasons: Discuss concerns Allergies amoxicillin [AMOXICILLIN] Allergy (Unknown, Verified 11/07/24 08:42) ITCHING, rash clarithromycin [CLARITHROMYCIN] Allergy (Unknown, Verified 11/07/24 08:42) ITCHING, rash ENVIRONMENTAL Allergy (Unknown, Uncoded 11/07/24 08:42) RUNNY NOSE Medication List - Last Reconciled 11/07/24 by Valorie Clay MD atenolol 25 mg PO DAILY [Blood pressure monitor As directed] blood pressure test kit-large As directed meloxicam 15 mg PO DAILY 90 days omeprazole 20 mg PO DAILY 90 days [Rollator with seat As directed] simvastatin 10 mg PO DAILY sumatriptan succinate 50 mg PO DAILY PRN tramadol 50 mg PO TID PRN 30 days vibegron (Gemtesa) 75 mg PO DAILY Tobacco use date assessed: 11/07/24 Fall risk assessment: No Falls in past year Last assessed Fall Risk: 11/07/24 Dental Screening Dental Screen Date: 11/07/24 Did you have a dental visit in the last 12 months?: Yes Did you have a dental problem in the last 6 months where you did not have access to dental care?: No Was dental information given to patient?: Patient has dentist HPI Discuss concerns HPI Details History 63-year-old female with a history of hyp ertension, GERD, and osteoarthritis, presenting for a routine follow-up appointment to address obesity-related concerns and medication refills. Her current medication regimen includes atenolol, omeprazole, and meloxicam. presenting with insurance complications and medication management issues. - The patient transitioned to [employer] insurance, resulting in Sumatriptan coverage denial. The insurance requires prior authorization. - Similar issues with Wegovy coverage we re noted, requiring an obesity specialist for prior authorization. - Current use of Tramadol for pain, with difficulty maintaining the prescribed schedule due to forgetfulness. - She has not undergone recent blood aquilino ts, although an order was previously placed in May. . Hypertension Ongoing management with atenolol. . Osteoarthritis Continued management with meloxicam as current treatment. . Gastroesophageal Reflux Disease Gerd Current management with omeprazole continues. The patient reported adherence to medication with no new symptoms or concerns. Problem List - Osteoarthritis - Hypertension - Gastroesophageal Reflux Disease (GERD) - Insurance-related medication issues - Need for prior authorization for Sumat riptan and Wegovy Patient Instructions - Schedule blood tests, including fastin g labs, to assess thyroid and pancreas function. - Upon receiving semaglutide, contact [facility] to arrange for injection training with a nurse. - Maintain prescribed medication regimen for atenolol, omeprazole, and meloxicam. - Focus on incorporating diet and exerci se as part of the weight management plan. - Please contact the front end web designer to updat e your insurance information. - I will resend the medication prescript ions; ensure your insurance details are current to facilitate prior authorization if needed. Review of Systems - General: No fever no chills - Neurological: No headaches no dizziness - Ear nose throat: No sore throat no hearing difficulty no ear pain - Cardiovascular: No syncope, no chest pain, no palpitations - Gastrointestinal: No nausea vomiting or diarrhea PFSH Medical History DJD (degenerative joint disease) Chronic back pain Depression Elevated cholesterol Spondylosis of lumbar region without myelopathy or radiculopathy Migraine headache Osteoarthritis, hip, bilateral Surgical History Hx of colonoscopy S/P laparoscopic sleeve gastrectomy Hx of dilation and curettage History of hip replacement History of wisdom tooth extraction Hx of cholecystectomy Family History Mother No problems noted. Sister No problems noted. Sister No problems noted. Son No problems noted. Father Lung cancer Social History Household Members Other:: alone Housing: House Are you a primary intensive care unit nurse to a significant other at home: No Do you presently have visiting nurse or other home services: No Alcohol intake: never Patient Tobacco Use Status: Never used Tobacco Years Smoked: 25 e-Cigarette/Vaping Use: Never Used Substance Use Type: Marijuana service: No Current occupational status: disabled Cognitive needs: No Hearing needs: No Vision needs: Yes Questionnaire Thrive Questionnaire Date Thrive assessed: 03/19/24 I am a: Patient What is your living situation today?: I have a steady place to live Within the past 12 months, did the food you bought not last and you didn't have the money to get more?: Never true Within the past 12 months, did you worry whether your food would run out before you got money to buy more?: Never true Do you have trouble paying for medicines?: No Do you have trouble getting transportation to medical appointments?: No Do you have trouble paying your heating and electricity bill?: No Do you have trouble taking care of your child, family member or friend?: No Do you have trouble with day-to-day activities such as bathing, preparing meals, shopping, managing finances, etc.?: No Are you currently unemployed and looking for a job?: No Are you interested in more education?: No Please select the resources that you would like help with: None Currently or been in a relationship where the following occur: No concerns reported THRIVE Score: 0 AUDIT C Alcohol Use Questionnaire (AUDIT-C) 1. How often do you have a drink containing alcohol?: Never 3. How often do you have six or more drinks on one occasion?: Never Total Score: 0 Score Reviewed/Action Taken: Yes CLIFTON-7 AMB Questionnaire CLIFTON-7 Date CLIFTON - 7 assessed: 12/15/23 Source: Developed by Drs. Seth Taylor, Fátima Mark, Kirby Torres and colleagues, with an educational ni from [employer]. Physical exam (Primary Care) Tobacco/Smoking Status: Tobacco use Status Tobacco use date assessed 11/07/24 11/07/24 08:43 Patient Tobacco Use Status Never used Tobacco 11/07/24 08:43 e-Cigarette/Vaping Use Never Used 11/07/24 08:43 Thrive Assessment: Date of Thrive Assessment Date Thrive assessed 03/19/24 11/07/24 08:43 Currently or been in a relationship where the following occur: No concerns reported Telehealth Telehealth Telehealth Platform: [facility] Location of provider rendering services: practice address Location of patient: address on file Patient Identification confirmed using: Name, : Yes Telehealth method: video Patient verbally consented to treatment: Yes Patient verbally consented to billing insurance company: Yes Patient informed of any privacy concerns related to visit: Yes Coding Level of Care Code Tele Est Pt Level 4 (71039) Diagnoses Hypertension, essential I10 Primary osteoarthritis of both hips M16.0 Osteoarthritis type: primary Spondylosis of lumbar region without myelopathy or radiculopathy M47.816 Moderate tramadol dependence F11.20 Morbid obesity due to excess calories E66.01 Lipid disorder E78.9 Chronic GERD K21.9 Time Spent (min) 30 Assessment & Plan Assessment & Plan (1) Hypertension, essential: Code(s): I10 - Essential (primary) hypertension Category: Medical (2) Osteoarthritis, hip, bilateral: Code(s): M16.0 - Bilateral primary osteoarthritis of hip Category: Medical Qualifiers: Osteoarthritis type: primary Qualified Code(s): M16.0 - Bilateral primary osteoarthritis of hip (3) Spondylosis of lumbar region without myelopathy or radiculopathy: Code(s): M47.816 - Spondylosis without myelopathy or radiculopathy, lumbar region Category: Medical (4) Moderate tramadol dependence: Code(s): F11.20 - Opioid dependence, uncomplicated Category: Medical (5) Morbid obesity due to excess calories: Code(s): E66.01 - Morbid (severe) obesity due to excess calories Category: Medical (6) Lipid disorder: Code(s): E78.9 - Disorder of lipoprotein metabolism, unspecified Category: Medical (7) Chronic GERD: Code(s): K21.9 - Gastro-esophageal reflux disease without esophagitis Category: Medical Plan History 63-year-old female with a history of hypertension, GERD, and osteoarthritis, presenting for a routine follow-up appointment to address obesity-related concerns and medication refills. Her current medication regimen includes atenolol, omeprazole, and meloxicam. presenting with insurance complications and medication management issues. - The patient transitioned to [facility] insurance, resulting in Sumatriptan coverage denial. The insurance requires prior authorization. - Similar issues with [employer] coverage were noted, requiring an obesity specialist for prior authorization. - Current use of Tramadol for pain, with difficulty maintaining the prescribed schedule due to forgetfulness. - She has not undergone recent blood tests, although an order was previously placed in May. . Hypertension Ongoing management with atenolol. . Osteoarthritis Continued management with meloxicam as current treatment. . Gastroesophageal Reflux Disease Gerd Current management with omeprazole continues. The patient reported adherence to medication with no new symptoms or concerns. Problem List - Osteoarthritis - Hypertension - Gastroesophageal Reflux Disease (GERD) - Insurance-related medication issues - Need for prior authorization for Sumatriptan and Wegovy Patient Instructions - Schedule blood tests, including fasting labs, to assess thyroid and pancreas function. - Upon receiving semaglutide, contact the clinic to arrange for injection training with a nurse. - Maintain prescribed medication regimen for atenolol, omeprazole, and meloxicam. - Focus on incorporating diet and exercise as part of the weight management plan. - Please contact the front end web designer to update your insurance information. - I will resend the medication prescriptions; ensure your insurance details are current to facilitate prior authorization if needed. Medications: Refilled sumatriptan succinate 50 mg PO DAILY PRN 14 tabs 5RF for migraine Wegovy (semaglutide (weight loss)) administer weeks 1 through 4 of therapy 0.25 mg (0.5 mL) subcut QWEEK 2 mL 1RF NS E66.01 - Morbid (severe) obesity due to excess calories, E78.9 - Disorder of lipoprotein metabolism, unspecified, K21.9 - Gastro-esophageal reflux disease without esophagitis, M16.0 - Bilateral primary osteoarthritis of hip, M47.816 - Spondylosis without myelopathy or radiculopathy, lumbar region, R68.89 - Other general symptoms and signs tramadol 50 mg PO TID 30 days PRN 90 tabs 2RF pain
== END 2024-11-07 09:13 | disposition home or self-care (01) ==
LOC: HO.HMCC 08:44
PROVIDERS: PCP Internal Medicine; Visit Provider Internal Medicine
DX: I10 Essential (primary) hypertension (principal); F11.20 Opioid dependence, uncomplicated; E66.01 Morbid (severe) obesity due to excess calories; M16.0 Bilateral primary osteoarthritis of hip; M47.816 Spondylosis without myelopathy or radiculopathy, lumbar region; E78.9 Disorder of lipoprotein metabolism, unspecified; K21.9 Gastro-esophageal reflux disease without esophagitis

== ENCOUNTER → 2024-11-07 08:44 | Outpatient (BNVA) | payer OTHER, SELFPAY | PROVIDERS: PCP Internal Medicine; Visit Provider Internal Medicine ==

== ENCOUNTER 2025-02-03 09:40 | Outpatient (REF) | payer OTHER, SELFPAY ==
[2025-02-03 10:45] LABS: MANUAL DIFF FLAG NO
[2025-02-03 10:55] LABS: Hematocrit 40.5 % (37.0-47.0); Hemoglobin 13.0 g/dl (12.0-16.0); Imm Gran Abs Auto 0.01 X10*3/uL (0.00-0.03); Imm Gran Pct Auto 0.2 % (0.0-0.4); Lymphocytes Absolute Auto 1.3 X10*3/uL (1.2-4.9); Mean Corpuscular HGB Conc 32.1 g/dl (31.0-35.0); Mean Corpuscular Hemoglobin 29.0 pg (27.0-33.0); Mean Corpuscular Volume 90.4 fL (80.0-98.0); NRBC Abs Auto 0.000 X10*3/uL (0.0-0.012); NRBC Pct Auto 0.0 /100WBC (0.0-0.2); Platelet Count 265 X10*3/uL (160-400); Red Blood Count 4.48 X10*6/uL (4.20-5.50); White Blood Count 4.2 X10*3/uL (4.8-10.8)
[2025-02-03 11:05] LABS: Hemoglobin A1C 116.7180 umol/L; Total Hemoglobin (HGBA1C) 3427.9494 umol/L
[2025-02-03 12:46] LABS: Anion Gap 12 (12-20)
[2025-02-03 13:00] LABS: Alanine Aminotransferase 18 U/L (0-31); Albumin Level 3.9 g/dL (3.5-5.0); Alkaline Phosphatase 83 U/L (39-117); Amylase 36 U/L (28-100); Aspartate Amino Transferase 19 U/L (5-31); Blood Urea Nitrogen 19 mg/dL (9-16); Calcium 9.0 mg/dL (8.4-10.2); Carbon Dioxide 29 mmol/L (22-29); Chloride 107 mmol/L (96-108); Cholesterol 197 mg/dL (<200); Estimated Glomerular Filt Rate > 60; HDL Cholesterol 84 mg/dL (>40); Lipase 26 U/L (8-78); Potassium 4.6 mmol/L (3.3-5.1); Sodium 143 mmol/L (135-145); Total Protein 6.5 g/dL (6.5-8.0); Triglycerides 61 mg/dL (<150)
[2025-02-08 15:23] LABS: Vitamin D 25-OH, D2 <4 ng/mL; Vitamin D 25-OH, D3 26 ng/mL; Vitamin D 25-OH, Total 26 ng/mL (30-100)
== END 2025-02-03 09:41 | disposition home or self-care (01) ==
LOC: HO.HMGCLDS 09:40
PROVIDERS: PCP Internal Medicine; Visit Provider Internal Medicine
DX: K21.9 Gastro-esophageal reflux disease without esophagitis (principal); E78.9 Disorder of lipoprotein metabolism, unspecified; E66.01 Morbid (severe) obesity due to excess calories; M47.816 Spondylosis without myelopathy or radiculopathy, lumbar region; R68.89 Other general symptoms and signs; M16.0 Bilateral primary osteoarthritis of hip; Z13.1 Encounter for screening for diabetes mellitus
CPT/HCPCS: 36415; 80053; 80061; 82150; 82306; 83036; 83690; 84443; 85025

== ENCOUNTER 2025-02-07 12:25 | Outpatient (AMB) | payer OTHER, SELFPAY ==
[2025-02-07 12:29] VITALS: BP 130/78; PULSE 67; O2SAT 97; BMI 58.8
--- NOTE | 2025-02-07 12:29 | MHC.PC.OV ---
Vital Signs 02/07/25 12:29 Height 5 ft 10 in Weight 410 lb BMI 58.8 BP 130/78 Blood Pressure Location Lt brachial Position Sitting Pulse 67 Pulse Source Pulse Oximeter Pulse Oximetry (%) 97 Oxygen Delivery Method Room Air Intake Visit Reasons: Annual PE [employer] Required: No Allergies amoxicillin (AMOXICILLIN) Allergy (Unknown, Verified 02/07/25 12:29) ITCHING, rash clarithromycin (CLARITHROMYCIN) Allergy (Unknown, Verified 02/07/25 12:29) ITCHING, rash ENVIRONMENTAL Allergy (Unknown, Uncoded 11/07/24 08:42) RUNNY NOSE Medication List - Last Reconciled 02/07/25 by Valorie Clay MD atenolol 25 mg PO DAILY [Blood pressure monitor As directed] blood pressure test kit-large As directed meloxicam 15 mg PO DAILY 90 days omeprazole 20 mg PO DAILY 90 days [Rollator with seat As directed] simvastatin 10 mg PO DAILY sumatriptan succinate 50 mg PO DAILY PRN tramadol 50 mg PO TID PRN 30 days vibegron (Gemtesa) 75 mg PO DAILY Tobacco use date assessed: 11/07/24 Fall risk assessment: No Falls in past year Last assessed Fall Risk: 02/07/25 Dental Screening Dental Screen Date: 11/07/24 HPI Annual PE HPI Details Physical exam appointment - The patient is a 64-year-old female presenting for discussion of multiple health concerns. - The patient reports a history of osteoarthritis, particularly affecting her hands, and experiences worsening symptoms over time. - She mentions back pain, specifically in the right side muscles, typically relieved by bending forward. No recent imaging of the back has been conducted. - The patient denies nausea, vomiting, or abdominal pain. - The patient has a history of hypertension, well-managed with atenolol. - She also reports difficulties with weight management and has been advised on medication coverage issues. - Past screenings include a mammogram in September and a colonoscopy in November 2020. Pap smear not needed according to patient and OBGYN discussions. Medical History: - Osteoarthritis - Essential Hypertension - Dyslipidemia - Systemic Osteoarthritis Social History: - The patient mentions occasionally eating breakfast and might skip lunch. She starts her day with coffee and a banana for medicine purposes. - Weight management and diet are discussed; however, she expresses difficulty in reducing weight. - She reports the need for a cane due to mobility issues linked to osteoarthritis. Health Maintenance - Mammogram completed in September. - Colonoscopy conducted in November 2020. - Shingles and pneumonia vaccines discussed, with recommendations to update the pneumonia vaccine. - Ongoing management of hypertension, dyslipidemia, and osteoarthritis. - Encourage breast self-exams regularly. Medications - Simvastatin for dyslipidemia - Atenolol for hypertension - Meloxicam for osteoarthritis - Omeprazole as discussed - Gemtesa indicated by Urology for bladder issues Diagnostic results - Labs: White count slightly low at 4.2. - Kidney function: Normal. - Liver enzymes: Normal. - Cholesterol: Well-controlled. - Thyroid: Normal. - Vitamin D: Results pending. Patient Instructions - Continue current medications as prescribed. - Check with the pharmacy for medication refills and to see if prior authorization is needed. Zepbound - Consider updating vaccines as recommended. - Engage in regular physical activities as tolerated. - Maintain weight management efforts. - Continue breast self-examinations regularly. - Monitor for any changes in symptoms and seek care if concerns arise. Review of Systems - General: No fever no chills - Neurological: No headaches no dizziness - Ear nose throat: No sore throat no hearing difficulty no ear pain - Cardiovascular: No syncope, no chest pain, no palpitations - Gastrointestinal: No nausea vomiting or diarrhea - Endocrine: No polyuria polydipsia no heat intolerance - Genitourinary: No dysuria - Skin: No new complaints Physical Exam General: Cooperative, morbid obese, comfortable, no acute distress Orientation: Patient oriented x3 Head: Normal to inspection Ears: Within normal limit visually Nose: Normal external nose present Face and sinus: Normal facial exam Eyes: Appearance normal, extraocular movement intact pupils reactive Neck: Normal visual inspection and supple Respiratory: Normal respiratory effort and able to speak in complete sentences. Clear to auscultation, no stridor Cardiovascular: S1 and S2 RRR GI: Normal to inspection. Soft to palpation and nontender Skin: Turgor normal, no acute findings. Neuro: Patient oriented x3, motor sensory intact balance and tandem test was not done due to body habitus and severe osteoarthritis both hips and knees Extremities: Normal to inspection [facility] Medical History DJD (degenerative joint disease) Chronic back pain Depression Elevated cholesterol Spondylosis of lumbar region without myelopathy or radiculopathy Migraine headache Osteoarthritis, hip, bilateral Surgical History Hx of colonoscopy S/P laparoscopic sleeve gastrectomy Hx of dilation and curettage History of hip replacement History of wisdom tooth extraction Hx of cholecystectomy Family History Mother No problems noted. Sister No problems noted. Sister No problems noted. Son No problems noted. Father Lung cancer Social History Household Members Other:: alone Housing: House Are you a primary residential child care counselor to a significant other at home: No Do you presently have visiting nurse or other home services: No Alcohol intake: never Patient Tobacco Use Status: Never used Tobacco Years Smoked: 25 e-Cigarette/Vaping Use: Never Used Substance Use Type: Marijuana service: No Current occupational status: disabled Cognitive needs: No Hearing needs: No Vision needs: Yes Questionnaire PHQ-9 Over the last 2 weeks, how often have you been bothered by any of the following problems? 1. Little interest or pleasure in doing things: not at all 2. Feeling down, depressed, or hopeless: not at all 3. Trouble falling or staying asleep, or sleeping too much: not at all 4. Feeling tired or having little energy: not at all 5. Poor appetite or overeating: not at all 6. Feeling bad about yourself - or that you are a failure or have let yourself or your family down: not at all 7. Trouble concentrating on things, such as reading the newspaper or watching television: not at all 8. Moving or speaking so slowly that other people could have noticed. Or the opposite - being so fidgety or restless that you have been moving around a lot more than usual: not at all 9. Thoughts that you would be better off or of hurting yourself in some way: not at all Total score: 0 Depression Screening Interpretation: Negative Depression Screening Done: Yes 32951 - PHQ-9 Billing: Yes Source: Developed by Drs. Seth Taylor, Fátima Mark, Kirby Torres and colleagues, with an educational ni from [employer] Thrive Questionnaire Date Thrive assessed: 02/07/25 I am a: Patient What is your living situation today?: I have a steady place to live Within the past 12 months, did the food you bought not last and you didn't have the money to get more?: Never true Within the past 12 months, did you worry whether your food would run out before you got money to buy more?: Never true Do you have trouble paying for medicines?: No Do you have trouble getting transportation to medical appointments?: No Do you have trouble paying your heating and electricity bill?: No Do you have trouble taking care of your child, family member or friend?: No Do you have trouble with day-to-day activities such as bathing, preparing meals, shopping, managing finances, etc.?: No Are you currently unemployed and looking for a job?: No Are you interested in more education?: No Please select the resources that you would like help with: None Currently or been in a relationship where the following occur: No concerns reported THRIVE Score: 0 AUDIT C Alcohol Use Questionnaire (AUDIT-C) 1. How often do you have a drink containing alcohol?: Never 3. How often do you have six or more drinks on one occasion?: Never Total Score: 0 Score Reviewed/Action Taken: Yes CLIFTON-7 AMB Questionnaire CLIFTON-7 Date CLIFTON - 7 assessed: 02/07/25 Feeling nervous, anxious, or on edge: 0 = Not at all Not being able to stop or control worryin = Not at all Worrying too much about different things: 0 = Not at all Trouble relaxin = Not at all Being so restless that it is hard to sit still: 0 = Not at all Becoming easily annoyed or irritable: 0 = Not at all Feeling afraid as if something awful might happen: 0 = Not at all Total CLIFTON-7 score (0-4 normal; 5-9 mild; 10-14 moderate; 15-21 severe): 0 Source: Developed by Drs. Seth Taylor, Fátima Mark, Kirby Torres and colleagues, with an educational ni from [employer] CLIFTON-7 Assessment Billing CLIFTON-7 Assessment Tool: CLIFTON-7 Assessment 64846 Physical exam (Primary Care) Vital Signs: Last Vital Signs Pulse 67 02/07/25 12:29 BP 130/78 02/07/25 12:29 Pulse Ox 97 07/11/25 12:29 Oxygen Delivery Method Room Air 02/07/25 12:29 BMI result Body Mass Index 58.8 Tobacco/Smoking Status: Tobacco use Status Tobacco use date assessed 11/07/24 02/07/25 12:35 Patient Tobacco Use Status Never used Tobacco 02/07/25 12:35 e-Cigarette/Vaping Use Never Used 02/07/25 12:35 PHQ-9: PHQ-9 Score PHQ-9: Total score 0 02/07/25 12:54 Depression Screening Interpretation: Negative Thrive Assessment: Date of Thrive Assessment Date Thrive assessed 02/07/25 02/07/25 12:35 Currently or been in a relationship where the following occur: No concerns reported Coding Level of Care Code Est Pt Level 3 (60575) Est Pt Prev Care >65y(32261) Diagnoses Encounter for general adult medical examination with abnormal findings Z00.01 Hypertension, essential I10 Lipid disorder E78.9 Morbid obesity due to excess calories E66.01 Primary osteoarthritis of both hips M16.0 Osteoarthritis type: primary Primary osteoarthritis of both knees M17.0 Osteoarthritis type: primary Risk for falls Z91.81 Intractable migraine with aura without status migrainosus G43.119 Migraine type: with aura Status migrainosus presence: without status migrainosus Intractability: intractable Bladder disorder N32.9 Additional Codes CLIFTON-7 Assessment Billing - CLIFTON-7 Assessment Tool: CLIFTON-7 Assessment [id number] ([id number]) PHQ-9 - 58716 - PHQ-9 Billing: Yes ([id number]) Assessment & Plan Assessment & Plan (1) Encounter for general adult medical examination with abnormal findings: Code(s): Z00.01 - Encounter for general adult medical examination with abnormal findings Category: Medical (2) Hypertension, essential: Code(s): I10 - Essential (primary) hypertension Category: Medical (3) Lipid disorder: Code(s): E78.9 - Disorder of lipoprotein metabolism, unspecified Category: Medical (4) Morbid obesity due to excess calories: Code(s): E66.01 - Morbid (severe) obesity due to excess calories Category: Medical (5) Osteoarthritis, hip, bilateral: Code(s): M16.0 - Bilateral primary osteoarthritis of hip Category: Medical Qualifiers: Osteoarthritis type: primary Qualified Code(s): M16.0 - Bilateral primary osteoarthritis of hip (6) Osteoarthritis of knees, bilateral: Code(s): M17.0 - Bilateral primary osteoarthritis of knee Category: Medical Qualifiers: Osteoarthritis type: primary Qualified Code(s): M17.0 - Bilateral primary osteoarthritis of knee (7) Risk for falls: Code(s): Z91.81 - History of falling Category: Medical (8) Migraine headache: Code(s): G43.909 - Migraine, unspecified, not intractable, without status migrainosus Category: Medical Qualifiers: Migraine type: with aura Status migrainosus presence: without status migrainosus Intractability: intractable Qualified Code(s): G43.119 - Migraine with aura, intractable, without status migrainosus (9) Bladder disorder: Code(s): N32.9 - Bladder disorder, unspecified Category: Medical Plan Physical exam appointment - The patient is a 64-year-old female presenting for discussion of multiple health concerns. - The patient reports a history of osteoarthritis, particularly affecting her hands, and experiences worsening symptoms over time. - She mentions back pain, specifically in the right side muscles, typically relieved by bending forward. No recent imaging of the back has been conducted. - The patient denies nausea, vomiting, or abdominal pain. - The patient has a history of hypertension, well-managed with atenolol. - She also reports difficulties with weight management and has been advised on medication coverage issues. - Past screenings include a mammogram in September and a colonoscopy in November 2020. Pap smear not needed according to patient and OBGYN discussions. Medical History: - Osteoarthritis - Essential Hypertension - Dyslipidemia - Systemic Osteoarthritis - urine incontinence managed by urologist Social History: - The patient mentions occasionally eating breakfast and might skip lunch. She starts her day with coffee and a banana for medicine purposes. - Weight management and diet are discussed; however, she expresses difficulty in reducing weight. - She reports the need for a cane due to mobility issues linked to osteoarthritis. Health Maintenance - Mammogram completed in September. - Colonoscopy conducted in November 2020. - Shingles and pneumonia vaccines discussed, with recommendations to update the pneumonia vaccine. - Ongoing management of hypertension, dyslipidemia, and osteoarthritis. - Encourage breast self-exams regularly. Medications - Simvastatin for dyslipidemia - Atenolol for hypertension - Meloxicam for osteoarthritis - Omeprazole as discussed - Gemtesa indicated by Urology for bladder issues Diagnostic results - Labs: White count slightly low at 4.2. - Kidney function: Normal. - Liver enzymes: Normal. - Cholesterol: Well-controlled. - Thyroid: Normal. - Vitamin D: Results pending. Patient Instructions - Continue current medications as prescribed. - Check with the pharmacy for medication refills and to see if prior authorization is needed. Zepbound - Consider updating vaccines as recommended. - Engage in regular physical activities as tolerated. - Maintain weight management efforts. - Continue breast self-examinations regularly. - Monitor for any changes in symptoms and seek care if concerns arise. Medications: New [cane] As directed 1 ea 0RF M16.0 - Bilateral primary osteoarthritis of hip, M17.0 - Bilateral primary osteoarthritis of knee, Z91.81 - History of falling cyclobenzaprine 10 mg PO BEDTIME PRN 30 tabs 0RF muscle spasm Refilled tirzepatide (weight loss) (Zepbound) for 4 weeks 2.5 mg (0.5 mL) subcut QWEEK 2 mL 0RF E66.01 - Morbid (severe) obesity due to excess calories, E78.9 - Disorder of lipoprotein metabolism, unspecified, I10 - Essential (primary) hypertension, M16.0 - Bilateral primary osteoarthritis of hip, M17.0 - Bilateral primary osteoarthritis of knee meloxicam 15 mg PO DAILY 90 tabs 0RF 90 days simvastatin 10 mg PO DAILY 90 tabs 0RF sumatriptan succinate 50 mg PO DAILY PRN 14 tabs 5RF for migraine omeprazole 20 mg PO DAILY 90 caps 0RF 90 days atenolol 25 mg PO DAILY 90 tabs 0RF
== END 2025-02-07 12:56 | disposition home or self-care (01) ==
LOC: HO.HMCC 12:26
PROVIDERS: PCP Internal Medicine; Visit Provider Internal Medicine
DX: Z00.01 Encounter for general adult medical examination with abnormal findings (principal); M16.0 Bilateral primary osteoarthritis of hip; M17.0 Bilateral primary osteoarthritis of knee; E66.01 Morbid (severe) obesity due to excess calories; Z68.43 Body mass index [BMI] 50.0-59.9, adult; I10 Essential (primary) hypertension; E78.9 Disorder of lipoprotein metabolism, unspecified; Z91.81 History of falling; G43.119 Migraine with aura, intractable, without status migrainosus; N32.9 Bladder disorder, unspecified

== ENCOUNTER → 2025-02-07 12:25 | Outpatient (BNVA) | payer OTHER, SELFPAY | PROVIDERS: PCP Internal Medicine; Visit Provider Internal Medicine | DX: Z00.01 Encounter for general adult medical examination with abnormal findings (principal); M54.9 Dorsalgia, unspecified; I10 Essential (primary) hypertension; E78.00 Pure hypercholesterolemia, unspecified; E66.01 Morbid (severe) obesity due to excess calories; M16.0 Bilateral primary osteoarthritis of hip; M17.0 Bilateral primary osteoarthritis of knee; G43.119 Migraine with aura, intractable, without status migrainosus; Z91.81 History of falling; Z79.899 Other long term (current) drug therapy | CPT/HCPCS: 96127; 99212; 99397 ==

== ENCOUNTER → 2025-05-01 13:04 | Outpatient (REF) | payer OTHER, SELFPAY | LOC: HO.SL 13:04 | PROVIDERS: PCP Internal Medicine; Visit Provider Internal Medicine | DX: E66.01 Morbid (severe) obesity due to excess calories (principal); R06.83 Snoring; R40.0 Somnolence; Z86.69 Personal history of other diseases of the nervous system and sense organs | CPT/HCPCS: 95806 ==

== ENCOUNTER → 2025-05-01 13:16 | Outpatient (BNV) | payer OTHER, SELFPAY | PROVIDERS: PCP Internal Medicine; Visit Provider Internal Medicine | DX: G47.33 Obstructive sleep apnea (adult) (pediatric) (principal) | CPT/HCPCS: 95806 ==

== ENCOUNTER 2025-05-06 10:54 | Outpatient (AMB) | payer OTHER, SELFPAY ==
[2025-05-06 10:59] VITALS: BP 140/90; PULSE 73; O2SAT 94; BMI 59.5
--- NOTE | 2025-05-06 10:59 | A.OFFPC_ITS ---
Vital Signs 05/06/25 10:59 05/06/25 12:01 Height 5 ft 10 in Weight 415 lb BMI 59.5 BP 140/90 H 138/88 Blood Pressure Location Lt brachial Position Sitting Pulse 73 Pulse Source Pulse Oximeter Pulse Oximetry (%) 94 Oxygen Delivery Method Room Air Intake Visit Reasons: 3 month follow up Allergies amoxicillin (AMOXICILLIN) Allergy (Unknown, Verified 05/06/25 10:59) ITCHING, rash clarithromycin (CLARITHROMYCIN) Allergy (Unknown, Verified 05/06/25 10:59) ITCHING, rash ENVIRONMENTAL Allergy (Unknown, Uncoded 11/07/24 08:42) RUNNY NOSE Medication List - Last Reconciled 05/06/25 by Valorie Clay MD atenolol 25 mg PO DAILY [Blood pressure monitor As directed] blood pressure test kit-large As directed [cane As directed] cyclobenzaprine 10 mg PO BEDTIME PRN meloxicam 15 mg PO DAILY 90 days omeprazole 20 mg PO DAILY 90 days [Rollator with seat As directed] simvastatin 10 mg PO DAILY sumatriptan succinate 50 mg PO DAILY PRN tirzepatide (weight loss) (Zepbound) 2.5 mg (0.5 mL) subcut QWEEK tramadol 50 mg PO TID PRN 30 days vibegron (Gemtesa) 75 mg PO DAILY Tobacco use date assessed: 11/07/24 Fall risk assessment: No Falls in past year Last assessed Fall Risk: 05/06/25 Dental Screening Dental Screen Date: 11/07/24 HPI 3 month follow up HPI Details History of Present Illness The patient is a 64-year-old female presenting with morbid obesity and shoulder pain. Morbid Obesity: - Reports a Body Mass Index (BMI) of 59. 5. - The patient has difficulty losing weig ht and did not engage in a current daniel ght reduction program. - Prior gastric sleeve surgery was perfo rmed a few years ago. - The patient is not currently following a calorie-restricted diet or engaging with a dietitian. Shoulder Pain: - The patient experiences worsening shou lder pain on the left side. - Inability to lift or use the shoulder without significant effort. - Pain is notably tender along the shoul susan and aggravated by movement. Medications: - Atenolol 25 mg - Cyclobenzaprine 10 mg at bedtime - Meloxicam 15 mg as needed - Omeprazole 20 mg - Simvastatin 10 mg - Sumatriptan 50 mg - Tramadol 50 mg, three times a day - Gemtesa for bladder Problem List - Morbid Obesity - Left Shoulder Pain - Essential Hypertension - Osteoarthritis - Chronic Gastroesophageal Reflux Diseas e - Lipid Disorder - Major Depression - Urge Incontinence - Hemorrhoids - Spondylosis of the Lumbar Region - Migraine Headaches Plan - Educated the patient on the need to en jose with a dietitian for weight management program and nutritional counseling. - Recommended the patient contact an ort hopedic specialist for evaluation of left shoulder pain, with possible corticosteroid injection or physical therapy. - Advised continued medication regimen a s currently prescribed, monitoring for side effects or needed adjustments in future visits. - Recommended routine screening and rizwana toring of hypertension and lipid levels. - Provided guidance on managing chronic symptoms of gastroesophageal reflux disease. - Suggest monitoring of major depression and adherence to current pharmacological treatment; further psychological intervention may be warranted. Review of Systems - General: No fever no chills - Neurological: No headaches no dizziness - Ear nose throat: No sore throat no hearing difficulty no ear pain - Cardiovascular: No syncope, no chest pain, no palpitations - Gastrointestinal: No nausea vomiting or diarrhea Physical Exam General: Morbidly obese, BMI of 59.5 HEENT: No acute findings Neck: Supple Respiratory system: Able to talk in full sentences, no audible wheeze Cardiovascular: S1-S2 regular in rate and rhythm Gastrointestinal: No pain Extremities: Left shoulder pain, limited range of motion BED MAKER: Alert awake oriented x3 motor intact Skin: Normal turgor PFSH Medical History DJD (degenerative joint disease) Chronic back pain Depression Elevated cholesterol Spondylosis of lumbar region without myelopathy or radiculopathy Migraine headache Osteoarthritis, hip, bilateral Surgical History Hx of colonoscopy S/P laparoscopic sleeve gastrectomy Hx of dilation and curettage History of hip replacement History of wisdom tooth extraction Hx of cholecystectomy Family History Mother No problems noted. Sister No problems noted. Sister No problems noted. Son No problems noted. Father Lung cancer Social History Household Members Other:: alone Housing: House Are you a primary after school caregiver to a significant other at home: No Do you presently have visiting nurse or other home services: No Alcohol intake: never Patient Tobacco Use Status: Never used Tobacco Years Smoked: 25 e-Cigarette/Vaping Use: Never Used Substance Use Type: Marijuana service: No Current occupational status: disabled Cognitive needs: No Hearing needs: No Vision needs: Yes Questionnaire PHQ-9 Over the last 2 weeks, how often have you been bothered by any of the following problems? 1. Little interest or pleasure in doing things: several days 2. Feeling down, depressed, or hopeless: not at all 3. Trouble falling or staying asleep, or sleeping too much: not at all 4. Feeling tired or having little energy: not at all 5. Poor appetite or overeating: not at all 6. Feeling bad about yourself - or that you are a failure or have let yourself or your family down: not at all 7. Trouble concentrating on things, such as reading the newspaper or watching television: not at all 8. Moving or speaking so slowly that other people could have noticed. Or the opposite - being so fidgety or restless that you have been moving around a lot more than usual: not at all 9. Thoughts that you would be better off or of hurting yourself in some way: not at all Total score: 1 Depression Screening Interpretation: Negative Depression Screening Done: Yes 90448 - PHQ-9 Billing: Yes Source: Developed by Drs. Seth Taylor, Fátima Mark, Kirby Torres and colleagues, with an educational ni from [employer] Thrive Questionnaire Date Thrive assessed: 02/02/25 I am a: Patient What is your living situation today?: I have a steady place to live Within the past 12 months, did the food you bought not last and you didn't have the money to get more?: Never true Within the past 12 months, did you worry whether your food would run out before you got money to buy more?: Never true Do you have trouble paying for medicines?: No Do you have trouble getting transportation to medical appointments?: No Do you have trouble paying your heating and electricity bill?: No Do you have trouble taking care of your child, family member or friend?: No Do you have trouble with day-to-day activities such as bathing, preparing meals, shopping, managing finances, etc.?: No Are you currently unemployed and looking for a job?: No Are you interested in more education?: No Please select the resources that you would like help with: None Currently or been in a relationship where the following occur: No concerns rep orted THRIVE Score: 0 AUDIT C Alcohol Use Questionnaire (AUDIT-C) 1. How often do you have a drink containing alcohol?: Never 3. How often do you have six or more drinks on one occasion?: Never Total Score: 0 Score Reviewed/Action Taken: Yes CLIFTON-7 AMB Questionnaire CLIFTON-7 Date CLIFTON - 7 assessed: 02/07/25 Feeling nervous, anxious, or on edge: 0 = Not at all Not being able to stop or control worryin = Not at all Worrying too much about different things: 0 = Not at all Trouble relaxin = Not at all Being so restless that it is hard to sit still: 0 = Not at all Becoming easily annoyed or irritable: 0 = Not at all Feeling afraid as if something awful might happen: 0 = Not at all Total CLIFTON-7 score (0-4 normal; 5-9 mild; 10-14 moderate; 15-21 severe): 0 Source: Developed by Drs. Seth Taylor, Fátima Mark, Kirby Torres and colleagues, with an educational ni from [employer] CLIFTON-7 Assessment Billing CLIFTON-7 Assessment Tool: CLIFTON-7 Assessment 86206 Physical exam (Primary Care) Vital Signs: Last Vital Signs Pulse 73 05/06/25 10:59 BP 138/88 05/06/25 12:01 Pulse Ox 94 05/06/25 10:59 Oxygen Delivery Method Room Air 05/06/25 10:59 BMI result Body Mass Index 59.5 Tobacco/Smoking Status: Tobacco use Status Tobacco use date assessed 11/07/24 05/06/25 11:03 Patient Tobacco Use Status Never used Tobacco 05/06/25 11:03 e-Cigarette/Vaping Use Never Used 05/06/25 11:03 PHQ-9: PHQ-9 Score PHQ-9: Total score 1 05/06/25 12:01 Depression Screening Interpretation: Negative Thrive Assessment: Date of Thrive Assessment Date Thrive assessed 02/02/25 05/06/25 11:03 Currently or been in a relationship where the following occur: No concerns reported Coding Level of Care Code Est Pt Level 4 (44519) Complex EM visit Add On G2211 Diagnoses Chronic left shoulder pain M25.512; G89.29 Chronicity: chronic Morbid obesity due to excess calories E66.01 Hypertension, essential I10 Lipid disorder E78.9 Primary osteoarthritis of both hips M16.0 Osteoarthritis type: primary Primary osteoarthritis of both knees M17.0 Osteoarthritis type: primary Intractable migraine with aura without status migrainosus G43.119 Migraine type: with aura Status migrainosus presence: without status migrainosus Intractability: intractable Bladder disorder N32.9 Additional Codes CLIFTON-7 Assessment Billing - CLIFTON-7 Assessment Tool: CLIFTON-7 Assessment 61394 ([id number]) PHQ-9 - 78957 - PHQ-9 Billing: Yes ([id number]) Assessment & Plan Assessment & Plan (1) Shoulder pain, left: Code(s): M25.512 - Pain in left shoulder Category: Medical Qualifiers: Chronicity: chronic Qualified Code(s): M25.512 - Pain in left shoulder; G89.29 - Other chronic pain (2) Morbid obesity due to excess calories: Code(s): E66.01 - Morbid (severe) obesity due to excess calories Category: Medical (3) Hypertension, essential: Code(s): I10 - Essential (primary) hypertension Category: Medical (4) Lipid disorder: Code(s): E78.9 - Disorder of lipoprotein metabolism, unspecified Category: Medical (5) Osteoarthritis, hip, bilateral: Code(s): M16.0 - Bilateral primary osteoarthritis of hip Category: Medical Qualifiers: Osteoarthritis type: primary Qualified Code(s): M16.0 - Bilateral primary osteoarthritis of hip (6) Osteoarthritis of knees, bilateral: Code(s): M17.0 - Bilateral primary osteoarthritis of knee Category: Medical Qualifiers: Osteoarthritis type: primary Qualified Code(s): M17.0 - Bilateral primary osteoarthritis of knee (7) Migraine headache: Code(s): G43.909 - Migraine, unspecified, not intractable, without status migrainosus Category: Medical Qualifiers: Migraine type: with aura Status migrainosus presence: without status migrainosus Intractability: intractable Qualified Code(s): G43.119 - Migraine with aura, intractable, without status migrainosus (8) Bladder disorder: Code(s): N32.9 - Bladder disorder, unspecified Category: Medical Plan History of Present Illness The patient is a 64-year-old female presenting with morbid obesity and shoulder pain. Morbid Obesity: - Reports a Body Mass Index (BMI) of 59.5. - The patient has difficulty losing weight and did not engage in a current weight reduction program. - Prior gastric sleeve surgery was performed a few years ago. - The patient is not currently following a calorie-restricted diet or engaging with a dietitian. Shoulder Pain: - The patient experiences worsening shoulder pain on the left side. - Inability to lift or use the shoulder without significant effort. - Pain is notably tender along the shoulder and aggravated by movement. Medications: - Atenolol 25 mg - Cyclobenzaprine 10 mg at bedtime - Meloxicam 15 mg as needed - Omeprazole 20 mg - Simvastatin 10 mg - Sumatriptan 50 mg - Tramadol 50 mg, three times a day - Gemtesa for bladder Problem List - Morbid Obesity - Left Shoulder Pain - Essential Hypertension - Osteoarthritis - Chronic Gastroesophageal Reflux Disease - Lipid Disorder - Major Depression - Urge Incontinence - Hemorrhoids - Spondylosis of the Lumbar Region - Migraine Headaches Plan - Educated the patient on the need to engage with a dietitian for weight management program and nutritional counseling. - Recommended the patient contact an guest specialist for evaluation of left shoulder pain, with possible corticosteroid injection or physical therapy. - Advised continued medication regimen as currently prescribed, monitoring for side effects or needed adjustments in future visits. - Recommended routine screening and monitoring of hypertension and lipid levels. - Provided guidance on managing chronic symptoms of gastroesophageal reflux disease. - Suggest monitoring of major depression and adherence to current pharmacological treatment; further psychological intervention may be warranted. Orders: Referrals Orthopedics Referral M25.512 - Pain in left shoulder Bariatric Surgery Referral E66.01 - Morbid (severe) obesity due to excess calories Medications: Refilled tramadol 50 mg PO TID PRN 90 tabs 2RF pain 30 days
[2025-05-06 12:01] VITALS: BP 138/88
== END 2025-05-06 11:25 | disposition home or self-care (01) ==
LOC: HO.HMCC 10:55
PROVIDERS: PCP Internal Medicine; Visit Provider Internal Medicine
DX: M25.512 Pain in left shoulder (principal); G89.29 Other chronic pain; E66.01 Morbid (severe) obesity due to excess calories; Z68.43 Body mass index [BMI] 50.0-59.9, adult; I10 Essential (primary) hypertension; E78.9 Disorder of lipoprotein metabolism, unspecified; M16.0 Bilateral primary osteoarthritis of hip; M17.0 Bilateral primary osteoarthritis of knee; G43.119 Migraine with aura, intractable, without status migrainosus; N32.9 Bladder disorder, unspecified

== ENCOUNTER → 2025-05-06 10:54 | Outpatient (BNVA) | payer OTHER, SELFPAY | PROVIDERS: PCP Internal Medicine; Visit Provider Internal Medicine | DX: E66.01 Morbid (severe) obesity due to excess calories (principal); M25.511 Pain in right shoulder; M25.512 Pain in left shoulder; G89.29 Other chronic pain; I10 Essential (primary) hypertension; E78.9 Disorder of lipoprotein metabolism, unspecified; M16.0 Bilateral primary osteoarthritis of hip; M17.0 Bilateral primary osteoarthritis of knee; G43.119 Migraine with aura, intractable, without status migrainosus; N32.9 Bladder disorder, unspecified; Z68.43 Body mass index [BMI] 50.0-59.9, adult | CPT/HCPCS: 96127; 99212 ==

== ENCOUNTER 2025-05-27 10:38 | Outpatient (AMB) | payer OTHER, SELFPAY ==
--- NOTE | 2025-05-27 11:13 | A.OFFVIS_ITS ---
Vital Signs 05/27/25 11:32 Height 5 ft 10 in Weight 430 lb BMI 61.7 Intake Visit Reasons: Obstructive sleep apnea Allergies amoxicillin (AMOXICILLIN) Allergy (Unknown, Verified 05/06/25 10:59) ITCHING, rash clarithromycin (CLARITHROMYCIN) Allergy (Unknown, Verified 05/06/25 10:59) ITCHING, rash ENVIRONMENTAL Allergy (Unknown, Uncoded 11/07/24 08:42) RUNNY NOSE Medication List - Last Reconciled 05/27/25 by Dylon Mcginnis MD atenolol 25 mg PO DAILY [Blood pressure monitor As directed] blood pressure test kit-large As directed [cane As directed] meloxicam 15 mg PO DAILY 90 days omeprazole 20 mg PO DAILY 90 days [Rollator with seat As directed] simvastatin 10 mg PO DAILY sumatriptan succinate 50 mg PO DAILY PRN tramadol 50 mg PO TID PRN 30 days vibegron (Gemtesa) 75 mg PO DAILY HPI Comments Details: This is a 64-year-old right-handed woman who is here for evaluation of obstructive sleep apnea. She has a history of chronic back pain and osteoarthritis for which she is on meloxicam and tramadol, hypertension treated with atenolol bladder control problems on Gemtesa, hyperlipidemia on simvastatin and GERD and occasional episodic migraine. She underwent bariatric surgery approximately 10 years ago for obesity a with a baseline weight of approximately 435 lb. At that time she was also suffering from obstructive sleep apnea and was on fullface mask CPAP. She lost weight to 247 lb and was able to come off the CPAP. Over the years she has again gained weight and her current weight is approximately 430 lb. She had a recent sleep study done on 05/08/2025 which shows long periods of snoring and an GIO of 10.1 with lowest oxygen saturations of 75%. This is consistent with otal-it-zfnjswhz obstructive sleep apnea with superimposed excessive sleeping. It is recommended that she be started on CPAP with auto PAP of approximately 12 cm pressure. [facility] Medical History (Updated 05/27/25 @ 11:27 by Dylon Mcginnis MD) Obstructive sleep apnea DJD (degenerative joint disease) Chronic back pain Depression Elevated cholesterol Spondylosis of lumbar region without myelopathy or radiculopathy Migraine headache Osteoarthritis, hip, bilateral Surgical History Hx of colonoscopy S/P laparoscopic sleeve gastrectomy Hx of dilation and curettage History of hip replacement History of wisdom tooth extraction Hx of cholecystectomy Family History Mother No problems noted. Sister No problems noted. Sister No problems noted. Son No problems noted. Father Lung cancer Social History Household Members Other:: alone Housing: House Are you a primary manager intensive care unit to a significant other at home: No Do you presently have visiting nurse or other home services: No Alcohol intake: never Patient Tobacco Use Status: Never used Tobacco Years Smoked: 25 e-Cigarette/Vaping Use: Never Used Substance Use Type: Marijuana service: No Current occupational status: disabled Cognitive needs: No Hearing needs: No Vision needs: Yes Review of Systems Const Reports daytime sleepiness, Reports difficulty sleeping and Reports snoring Resp Reports snoring Physical Exam Neuro Other: ?Mini Mental Status Exam Level of Consciousness:?Alert.? Orientation:?Knows correct year, month, date, day and season.?Knows correct city, county and state. Knows correct location and floor.? Registration:?Able to register 3 objects.? Attention:?Serial 7's performed accurately.? Recall:?Able to recall 3 out of 3 objects.? Language:?Normal spontaneous speech, fluency, repetition, naming, comprehension, reading, and writing.? Total Score:?30/30.? Neurological Abnormal neurological findings:??none.? Mental Status:?Alert and oriented X 3.?Normal attention, orientation, memory, and affect.? Cranial Nerves:?Pupils are equal, round and reactive to light. Fundoscopy shows normal disc bilaterally. External occular muscles are intact. Visual beckford are full, no ptosis. Face is symmetrical, no facial weakness or droop. Facial sensations are normal. Tongue protrudes in midline. Palate elevates symmetrically. Shoulder shrugging is normal.? Motor Examination:?Normal muscle tone, bulk and strength.?No atrophy or fasciculations.?No drift of the extended upper extremities.?Deep tendon reflexes are 2+.?Plantars are flexor.? Motor Strength:? Proximal Muscles (out of 5):?5 Distal Muscles (out of 5):?5 Neck Flexors (out of 5):?5 Neck Extensors (out of 5):?5 Deltoid (out of 5):?5 Biceps (out of 5):?5 Triceps (out of 5):?5 Serratus Anterior (out of 5):?5 Wrist Extensors (out of 5):?5 APB (out of 5):?5 Finger Spread (out of 5):?5 Ileopsoas (out of 5):?5 Quadriceps (out of 5):?5 Hamstrings (out of 5):?5 Tibialis Anterior (out of 5):?5 Peronei (out of 5):?5 EDB (out of 5):?5 Gastrocnemius (out of 5):?5 Straight Leg Raising:?90 degrees.? Sensory Exam:?Normal light touch, temperature, pinprick, vibration and joint-position sensations.?Rhomberg sign is absent.? Coordination:?No ataxia,?no titubation,?zpacdm-ep-bjbr, lgbi-xndc-gnwp test, and rapid alternating movements were normal.? Gait Exam:?Within normal limits.? Cerebellar Signs:?Mnctmj-zz-eflm and rlzi-pc-know is normal.?No dysdiadochokinesia.? Extrapyramidal System:?No tremor or?rigidity, normal facial expressions.?No bradykinesia. No bradyphrenia. Normal arm swing and posture. No propulsion or retropulsion.? Speech:?Normal,?no dysphasia or dysarthria.? General Examination GENERAL APPEARANCE:??normal,?in no acute distress?,?normal,?in no acute distress.? HEAD:??normocephalic,?atraumatic.? EYES:??sclera non-icteric,?conjunctiva clear.? EARS:??auditory canal clear,?tympanic membrane intact, clear.? NOSE:??no lesions.? ORAL CAVITY:??gums normal,?mucosa moist,?no lesions.? THROAT:??clear.? NECK/THYROID:??no cervical lymphadenopathy,?thyroid normal,?neck supple, full range of motion,?no carotid bruit.? SKIN:??no rashes,?no significant birthmarks.? HEART:??S1, S2 normal,?no murmurs?,?S1, S2 normal,?no murmurs.? LUNGS:??clear anteriorly and posteriorly?,?clear anteriorly and posteriorly.? CHEST:??no gross rib deformity,?clear to auscultation.? BACK:??normal exam of spine.? MUSCULOSKELETAL:??normal.? EXTREMITIES:??no edema?,?no edema.? PERIPHERAL PULSES:??normal.? PSYCH:??alert, oriented,?cognitive function intact,?cooperative with exam?,?alert, oriented,?cognitive function intact,?cooperative with exam.? Assessment & Plan Assessment & Plan (1) Obstructive sleep apnea: Code(s): G47.33 - Obstructive sleep apnea (adult) (pediatric) Category: Medical (2) Migraine headache: Code(s): G43.909 - Migraine, unspecified, not intractable, without status migrainosus Category: Medical Qualifiers: Migraine type: with aura Status migrainosus presence: without status migrainosus Intractability: intractable Qualified Code(s): G43.119 - Migraine with aura, intractable, without status migrainosus (3) Morbid obesity: Code(s): E66.01 - Morbid (severe) obesity due to excess calories Category: Medical (4) Nocturnal hypoxia: Code(s): G47.34 - Idiopathic sleep related nonobstructive alveolar hypoventilation Category: Medical Plan Refer to respiratory therapy for CPAP with auto PAP at 12 cm pressure for treatment of obstructive sleep apnea Coding Level of Care Code New Pt Level 5 (90669) Diagnoses Obstructive sleep apnea G47.33 Intractable migraine with aura without status migrainosus G43.119 Migraine type: with aura Status migrainosus presence: without status migrainosus Intractability: intractable Morbid obesity E66.01 Nocturnal hypoxia G47.34
[2025-05-27 11:32] VITALS: BMI 61.7
== END 2025-05-27 11:29 | disposition home or self-care (01) ==
LOC: HO.HSM 10:39
PROVIDERS: PCP Internal Medicine; Visit Provider Psychiatry & Neurology Neurology
DX: G47.33 Obstructive sleep apnea (adult) (pediatric) (principal); G43.119 Migraine with aura, intractable, without status migrainosus; E66.01 Morbid (severe) obesity due to excess calories; G47.34 Idiopathic sleep related nonobstructive alveolar hypoventilation
CPT/HCPCS: 99204

== ENCOUNTER → 2025-05-27 10:38 | Outpatient (BNVA) | payer OTHER, SELFPAY | PROVIDERS: PCP Internal Medicine; Visit Provider Psychiatry & Neurology Neurology | DX: G47.34 Idiopathic sleep related nonobstructive alveolar hypoventilation (principal); G43.119 Migraine with aura, intractable, without status migrainosus; E66.01 Morbid (severe) obesity due to excess calories | CPT/HCPCS: 99202 ==

== ENCOUNTER 2025-06-24 08:24 | Outpatient (REF) | payer OTHER, SELFPAY ==
--- NOTE | ~2025-06-24 | XR_ITS ---
EXAMINATION: XR SHOULDER 2 OR MORE VIEWS LEFT HISTORY: M25.512 - Pain in left shoulder COMPARISON: There are no prior studies available for comparison. FINDINGS: Two views of the left shoulder are submitted. Osseous mineralization is normal. There is no fracture or dislocation. There is severe osteoarthritis of the glenohumeral joint with joint space narrowing and osteophyte formation. There is mild narrowing of the AC joint. Calcifications inferior to the humeral head likely represent loose bodies in the axillary recess. The soft tissues are unremarkable. XR/XR shoulder LT min 2V IMPRESSION: Degenerative changes of the left shoulder as described. Electronically signed by: Seth Oviedo MD 06/24/2025 11:09 AM ZOË
== END 2025-06-24 08:25 | disposition home or self-care (01) ==
LOC: HO.HOSX 08:24
PROVIDERS: Visit Provider Orthopaedic Surgery
DX: M19.012 Primary osteoarthritis, left shoulder (principal)
CPT/HCPCS: 73030; 99202

== ENCOUNTER 2025-06-24 10:48 | Outpatient (AMB) | payer OTHER, SELFPAY ==
--- NOTE | 2025-06-24 10:57 | A.OFFVIS_ITS ---
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 Patient reports her left shoulder randomly started hurting her six months ago. She denies recent injury. When she has to stand she uses her arms to assist her up and says this is doing a number on her left shoulder. Reports daily clicking in the left shoulder with any range of motion. She can not do ADLs without pain anymore such as getting ready and doing her hair for the day. She is interested in physical therapy. Allergies amoxicillin (AMOXICILLIN) Allergy (Unknown, Verified 06/24/25 11:00) ITCHING, rash clarithromycin (CLARITHROMYCIN) Allergy (Unknown, Verified 06/24/25 11:00) ITCHING, rash ENVIRONMENTAL Allergy (Unknown, Uncoded 06/24/25 11:00) RUNNY NOSE Medication List - Last Reviewed 06/24/25 by MIKHAIL Barnes atenolol 25 mg PO DAILY [Blood pressure monitor As directed] blood pressure test kit-large As directed [cane As directed] meloxicam 15 mg PO DAILY 90 days omeprazole 20 mg PO DAILY 90 days [Rollator with seat As directed] simvastatin 10 mg PO DAILY sumatriptan succinate 50 mg PO DAILY PRN tirzepatide (weight loss) (Zepbound) 2.5 mg subcut QWEEK tramadol 50 mg PO TID PRN 30 days vibegron (Gemtesa) 75 mg PO DAILY [facility] Medical History (Updated 06/24/25 @ 11:08 by Amos Pulliam MD) Obstructive sleep apnea DJD (degenerative joint disease) Chronic back pain Depression Elevated cholesterol Spondylosis of lumbar region without myelopathy or radiculopathy Migraine headache Osteoarthritis, hip, bilateral Surgical History Hx of colonoscopy S/P laparoscopic sleeve gastrectomy Hx of dilation and curettage History of hip replacement History of wisdom tooth extraction Hx of cholecystectomy Family History Mother No problems noted. Sister No problems noted. Sister No problems noted. Son No problems noted. Father Lung cancer Social History Household Members Other:: alone Housing: House Are you a primary geriatric personal care aide to a significant other at home: No Do you presently have visiting nurse or other home services: No Alcohol intake: never Patient Tobacco Use Status: Never used Tobacco Years Smoked: 25 e-Cigarette/Vaping Use: Never Used Substance Use Type: Marijuana service: No Current occupational status: disabled Cognitive needs: No Hearing needs: No Vision needs: Yes Physical Exam Vital Signs: BMI result Body Mass Index 57.7 Extrem Other: Left shoulder examination shows decreased range of motion when compared to her right shoulder, 4+ out of 5 strength with supraspinatus testing, mild crepitus with range of motion, no instability Results Reviewed Results Reviewed: X-rays of the patient's left shoulder show moderate to severe glenohumeral joint degenerative changes with joint space narrowing, subchondral sclerosis, osteophyte formation, no acute bony abnormalities Assessment & Plan Assessment & Plan (1) Arthritis of left shoulder region: Code(s): M19.012 - Primary osteoarthritis, left shoulder Category: Medical Plan Ms. Courtney presents with left shoulder pain due to glenohumeral joint arthritis. I had a lengthy discussion with the patient regarding the treatment options. She wishes to hold off on a cortisone injection for now. I did give her a prescription to go to formal physical therapy. She will follow up with me on an as-needed basis should her symptoms not plateau over the next few months. Feel free to call me at any time should questions regarding her orthopedic management arise. Thank you very much for asking me to see this very friendly patient. I spent 22 minutes in reviewing the patient's records and imaging studies, seeing the patient and documenting in the medical record. Orders: Orders XR shoulder LT min 2V Today G89.29 - Other chronic pain, M25.512 - Pain in left shoulder PT Evaluation and Treatment Today M19.012 - Primary osteoarthritis, left shoulder Coding Level of Care Code New Pt Level 3 (61537) Complex visit Add On G2211 Diagnoses Arthritis of left shoulder region M19.012
[2025-06-24 10:59] VITALS: BMI 57.7
== END 2025-06-24 11:15 | disposition home or self-care (01) ==
LOC: HO.HOS 10:48
PROVIDERS: PCP Internal Medicine; Visit Provider Orthopaedic Surgery
DX: M19.012 Primary osteoarthritis, left shoulder (principal)
CPT/HCPCS: 99203; G2211

== ENCOUNTER → 2025-06-24 10:50 | Outpatient (BNV) | payer OTHER, SELFPAY | PROVIDERS: Visit Provider Radiology Diagnostic Radiology | DX: M19.012 Primary osteoarthritis, left shoulder (principal) | CPT/HCPCS: 73030 ==

== ENCOUNTER 2025-07-11 09:57 | Outpatient (REF) | payer OTHER, SELFPAY ==
[2025-07-11 13:54] LABS: MANUAL DIFF FLAG NO
[2025-07-11 14:02] LABS: Hematocrit 43.5 % (37.0-47.0); Hemoglobin 13.5 g/dl (12.0-16.0); Imm Gran Abs Auto 0.01 X10*3/uL (0.00-0.03); Imm Gran Pct Auto 0.2 % (0.0-0.4); Lymphocytes Absolute Auto 1.3 X10*3/uL (1.2-4.9); Mean Corpuscular HGB Conc 31.0 g/dl (31.0-35.0); Mean Corpuscular Hemoglobin 29.0 pg (27.0-33.0); Mean Corpuscular Volume 93.5 fL (80.0-98.0); NRBC Abs Auto 0.000 X10*3/uL (0.0-0.012); NRBC Pct Auto 0.0 /100WBC (0.0-0.2); Platelet Count 300 X10*3/uL (160-400); Red Blood Count 4.65 X10*6/uL (4.20-5.50); White Blood Count 5.5 X10*3/uL (4.8-10.8)
[2025-07-11 14:40] LABS: Alanine Aminotransferase 13 U/L (0-31); Albumin Level 4.1 g/dL (3.5-5.0); Alkaline Phosphatase 82 U/L (39-117); Anion Gap 11 (12-20); Aspartate Amino Transferase 18 U/L (5-31); Blood Urea Nitrogen 21 mg/dL (9-16); Calcium 9.4 mg/dL (8.4-10.2); Carbon Dioxide 28 mmol/L (22-29); Chloride 107 mmol/L (96-108); Estimated Glomerular Filt Rate > 60; Potassium 4.5 mmol/L (3.3-5.1); Sodium 141 mmol/L (135-145); Total Protein 6.7 g/dL (6.5-8.0)
[2025-07-11 15:00] LABS: Ferritin 22 ng/mL (10-250)
[2025-07-15 19:03] LABS: Vitamin D 25-OH, D2 <4 ng/mL; Vitamin D 25-OH, D3 31 ng/mL; Vitamin D 25-OH, Total 31 ng/mL (30-100)
== END 2025-07-11 09:58 | disposition home or self-care (01) ==
LOC: HO.HMGCLDS 09:57
PROVIDERS: PCP Internal Medicine; Visit Provider Internal Medicine
DX: Z01.818 Encounter for other preprocedural examination (principal); I10 Essential (primary) hypertension; E78.9 Disorder of lipoprotein metabolism, unspecified; E66.01 Morbid (severe) obesity due to excess calories; K21.9 Gastro-esophageal reflux disease without esophagitis; I50.9 Heart failure, unspecified; D50.9 Iron deficiency anemia, unspecified; M19.019 Primary osteoarthritis, unspecified shoulder; K59.00 Constipation, unspecified; E55.9 Vitamin D deficiency, unspecified; G47.33 Obstructive sleep apnea (adult) (pediatric); M17.0 Bilateral primary osteoarthritis of knee; M47.816 Spondylosis without myelopathy or radiculopathy, lumbar region
CPT/HCPCS: 36415; 80053; 82306; 82728; 83721; 84443; 85025; 99212

== ENCOUNTER 2025-07-11 09:57 | Outpatient (AMB) | payer OTHER, SELFPAY ==
[2025-07-11 10:00] VITALS: BP 132/80; PULSE 73; O2SAT 94; BMI 58.4
--- NOTE | 2025-07-11 10:00 | A.OFFPC_ITS ---
Vital Signs 07/11/25 10:00 Height 5 ft 10 in Weight 407 lb BMI 58.4 BP 132/80 Blood Pressure Location Rt brachial Position Sitting Pulse 73 Pulse Source Pulse Oximeter Pulse Oximetry (%) 94 Intake Visit Reasons: Pre op Intake Note: [facility] Allergies amoxicillin (AMOXICILLIN) Allergy (Unknown, Verified 07/11/25 10:00) ITCHING, rash clarithromycin (CLARITHROMYCIN) Allergy (Unknown, Verified 07/11/25 10:00) ITCHING, rash ENVIRONMENTAL Allergy (Unknown, Uncoded 06/24/25 11:00) RUNNY NOSE Medication List - Last Reconciled 07/11/25 by Valorie Clay MD atenolol 25 mg PO DAILY [Blood pressure monitor As directed] blood pressure test kit-large As directed [cane As directed] meloxicam 15 mg PO DAILY 90 days omeprazole 20 mg PO DAILY 90 days [Rollator with seat As directed] simvastatin 10 mg PO DAILY sumatriptan succinate 50 mg PO DAILY PRN tirzepatide (weight loss) (Zepbound) 2.5 mg subcut QWEEK tramadol 50 mg PO TID PRN 30 days vibegron (Gemtesa) 75 mg PO DAILY Tobacco use date assessed: 11/07/24 Fall risk assessment: No Falls in past year Last assessed Fall Risk: 07/11/25 Dental Screening Dental Screen Date: 11/07/24 HPI HPI Comments History of Present Illness Details History The patient is a 64 year old female presenting with a preoperative evaluation for upcoming cataract surgery. Cataracts: - The patient has bilateral cataracts, w ith the left eye being more significant. - She is scheduled for cataract surgery on the left eye on August 05 and the right eye on August [address] Elliott. - The procedure was described as not req uiring a breathing machine, but she will receive medication to relax and numb the eye. Obesity: - The patient is being treated for obesi ty with Zepbound. - She started the medication at a weight of 414.6 lbs and has finished the first box. - Her weight is now fluctuating within a 2-pound range for the past week after an initial loss, and she denies any side effects from the medication. Iron deficiency: - About a month and a half ago, the edinson ent was found to have low iron when she attempted to donate blood. - She has been taking iron tablets since that time. - A CBC from January did not show any anemi a. Shoulder arthritis: - The patient has been attending physica l therapy for shoulder pain, which was determined to be due to arthritis rather than a rotator cuff issue. - She reports soreness from therapy and pain in her arm, which she continues to manage with home exercises using a door anu system. Constipation: - The patient reports that constipation has worsened recently, requiring her to take stool softeners almost daily, whereas previously she only needed them occasionally. - She attributes the worsening constipat ion to a combination of taking iron supplements and Zepbound. Medical History: - Cataracts, bilateral - Iron deficiency, taking supplements - Vitamin D deficiency - Obesity - Shoulder arthritis - Severe osteoarthritis of bilateral hip s - Hyperlipidemia - Migraine headaches - Urge incontinence/bladder disorder Surgical History: - Scheduled for cataract surgery on the left eye on August 05 and the right eye on August 11. Diagnostic Results: - CBC in January was normal with no anemia. - Vitamin D level is low. Medications - Iron tablets - Simvastatin 10 mg for lipid control. - Zepbound for weight loss. - Stool softeners as needed for constipa tion. - Meloxicam for severe osteoarthritis of bilateral hips. - Omeprazole. - Sumatriptan for migraine headaches. - Tramadol, three times a day, for sever e joint pain. - Gemtesa for bladder disorder/urge inco ntinence. [facility] Medical History Obstructive sleep apnea DJD (degenerative joint disease) Chronic back pain Depression Elevated cholesterol Spondylosis of lumbar region without myelopathy or radiculopathy Migraine headache Osteoarthritis, hip, bilateral Surgical History Hx of colonoscopy S/P laparoscopic sleeve gastrectomy Hx of dilation and curettage History of hip replacement History of wisdom tooth extraction Hx of cholecystectomy Family History Mother No problems noted. Sister No problems noted. Sister No problems noted. Son No problems noted. Father Lung cancer Social History Household Members Other:: alone Housing: House Are you a primary career services director to a significant other at home: No Do you presently have visiting nurse or other home services: No Alcohol intake: never Patient Tobacco Use Status: Never used Tobacco Years Smoked: 25 e-Cigarette/Vaping Use: Never Used Substance Use Type: Marijuana service: No Current occupational status: disabled Cognitive needs: No Hearing needs: No Vision needs: Yes Questionnaire Thrive Questionnaire Date Thrive assessed: 02/02/25 I am a: Patient What is your living situation today?: I have a steady place to live Within the past 12 months, did the food you bought not last and you didn't have the money to get more?: Never true Within the past 12 months, did you worry whether your food would run out before you got money to buy more?: Never true Do you have trouble paying for medicines?: No Do you have trouble getting transportation to medical appointments?: No Do you have trouble paying your heating and electricity bill?: No Do you have trouble taking care of your child, family member or friend?: No Do you have trouble with day-to-day activities such as bathing, preparing meals, shopping, managing finances, etc.?: No Are you currently unemployed and looking for a job?: No Are you interested in more education?: No Please select the resources that you would like help with: None Currently or been in a relationship where the following occur: No concerns reported THRIVE Score: 0 CLIFTON-7 AMB Questionnaire CLIFTON-7 Date CLIFTON - 7 assessed: 02/07/25 Source: Developed by Drs. Seth Taylor, Fátima Mark, Kirby davidson nd colleagues, with an educational ni from [employer]. Physical exam (Primary Care) Vital Signs: Last Vital Signs Pulse 73 07/11/25 10:00 BP 132/80 07/11/25 10:00 Pulse Ox 94 07/11/25 10:00 BMI result Body Mass Index 58.4 Tobacco/Smoking Status: Tobacco use Status Tobacco use date assessed 11/07/24 07/11/25 10:01 Patient Tobacco Use Status Never used Tobacco 07/11/25 10:01 e-Cigarette/Vaping Use Never Used 07/11/25 10:01 Thrive Assessment: Date of Thrive Assessment Date Thrive assessed 02/02/25 07/11/25 10:01 Currently or been in a relationship where the following occur: No concerns reported Coding Level of Care Code Est Pt Level 5 (15031) Diagnoses Pre-op evaluation Z01.818 Cataract of both eyes, unspecified cataract type H26.9 Cataract type: unspecified Laterality: bilateral Hypertension, essential I10 Lipid disorder E78.9 Morbid obesity due to excess calories E66.01 Chronic GERD K21.9 Moderate tramadol dependence F11.20 Spondylosis of lumbar region without myelopathy or radiculopathy M47.816 Primary osteoarthritis of both knees M17.0 Osteoarthritis type: primary Obstructive sleep apnea G47.33 Time Spent (min) 40 Comment time spent in care of this patient Assessment & Plan Assessment & Plan (1) Pre-op evaluation: Code(s): Z01.818 - Encounter for other preprocedural examination Category: Medical (2) Cataract: Code(s): H26.9 - Unspecified cataract Category: Medical Qualifiers: Cataract type: unspecified Laterality: bilateral Qualified Code(s): H26.9 - Unspecified cataract (3) Hypertension, essential: Code(s): I10 - Essential (primary) hypertension Category: Medical (4) Lipid disorder: Code(s): E78.9 - Disorder of lipoprotein metabolism, unspecified Category: Medical (5) Morbid obesity due to excess calories: Code(s): E66.01 - Morbid (severe) obesity due to excess calories Category: Medical (6) Chronic GERD: Code(s): K21.9 - Gastro-esophageal reflux disease without esophagitis Category: Medical (7) Moderate tramadol dependence: Code(s): F11.20 - Opioid dependence, uncomplicated Category: Medical (8) Spondylosis of lumbar region without myelopathy or radiculopathy: Code(s): M47.816 - Spondylosis without myelopathy or radiculopathy, lumbar region Category: Medical (9) Osteoarthritis of knees, bilateral: Code(s): M17.0 - Bilateral primary osteoarthritis of knee Category: Medical Qualifiers: Osteoarthritis type: primary Qualified Code(s): M17.0 - Bilateral primary osteoarthritis of knee (10) Obstructive sleep apnea: Code(s): G47.33 - Obstructive sleep apnea (adult) (pediatric) Category: Medical Plan Problem List - Preoperative evaluation for cataract surgery - Obesity - Iron deficiency - Vitamin D deficiency - Constipation - Shoulder arthritis - Hyperlipidemia - Osteoarthritis of bilateral hips - Migraine - Urge incontinence Plan 1. Preoperative Evaluation For Cataract Surgery - The patient is cleared for cataract surgery. - Lab work, including an iron panel, will be done today as it has been over six months since the last labs. 2. Obesity - The patient has completed her first box of Zepbound and reports tolerating it well without side effects. - Due to a plateau in weight loss, the dose of Zepbound will be increased to 5 mg. 3. Constipation - Acknowledged that constipation is likely exacerbated by both Zepbound and iron supplementation. - Will monitor for worsening symptoms with the increased dose of Zepbound. 4. Iron Deficiency - Continue current iron supplementation. - An iron panel will be added to today's lab work to assess current levels. 5. Vitamin D Deficiency - Recommended to start a Vitamin D supplement. 6. Shoulder Arthritis - The patient should continue with physical therapy, including home exercises. - Advised to be cautious and not overdo exercises to avoid exacerbating pain. 7. Follow-Up - The patient will reschedule her three-month follow-up appointment, as the orig inal date conflicted with her scheduled eye surgery. Orders: Orders Complete Blood Count Auto Diff Today E66.01 - Morbid (severe) obesity due to excess calories, E78.9 - Disorder of lipoprotein metabolism, unspecified, F11.20 - Opioid dependence, uncomplicated, I10 - Essential (primary) hypertension, K21.9 - Gastro-esophageal reflux disease without esophagitis LDL Cholesterol Direct Today E66.01 - Morbid (severe) obesity due to excess calories, E78.9 - Disorder of lipoprotein metabolism, unspecified, F11.20 - Opioid dependence, uncomplicated, I10 - Essential (primary) hypertension, K21.9 - Gastro-esophageal reflux disease without esophagitis Vitamin D 25-OH (D2 and D3) Today E66.01 - Morbid (severe) obesity due to excess calories, E78.9 - Disorder of lipoprotein metabolism, unspecified, F11.20 - Opioid dependence, uncomplicated, I10 - Essential (primary) hypertension, K21.9 - Gastro-esophageal reflux disease without esophagitis Ferritin Today E66.01 - Morbid (severe) obesity due to excess calories, E78.9 - Disorder of lipoprotein metabolism, unspecified, F11.20 - Opioid dependence, uncomplicated, I10 - Essential (primary) hypertension, K21.9 - Gastro-esophageal reflux disease without esophagitis Comprehensive Met. Panel Today E66.01 - Morbid (severe) obesity due to excess calories, E78.9 - Disorder of lipoprotein metabolism, unspecified, F11.20 - Opioid dependence, uncomplicated, I10 - Essential (primary) hypertension, K21.9 - Gastro-esophageal reflux disease without esophagitis TSH reflex Free T4 Today E66.01 - Morbid (severe) obesity due to excess calories, E78.9 - Disorder of lipoprotein metabolism, unspecified, F11.20 - Opioid dependence, uncomplicated, I10 - Essential (primary) hypertension, K21.9 - Gastro-esophageal reflux disease without esophagitis Medications: New tirzepatide (weight loss) for 4 weeks 5 mg (0.5 mL) subcut QWEEK 2.5 mL 2RF 30 days E66.01 - Morbid (severe) obesity due to excess calories, G47.33 - Obstructive sleep apnea (adult) (pediatric), M17.0 - Bilateral primary osteoarthritis of knee, M47.816 - Spondylosis without myelopathy or radiculopathy, lumbar region
== END 2025-07-11 10:49 | disposition home or self-care (01) ==
LOC: HO.HMCC 09:58
PROVIDERS: Visit Provider Internal Medicine
DX: Z01.818 Encounter for other preprocedural examination (principal); E66.01 Morbid (severe) obesity due to excess calories; F11.20 Opioid dependence, uncomplicated; Z68.43 Body mass index [BMI] 50.0-59.9, adult; H26.9 Unspecified cataract; I10 Essential (primary) hypertension; E78.9 Disorder of lipoprotein metabolism, unspecified; K21.9 Gastro-esophageal reflux disease without esophagitis; M47.816 Spondylosis without myelopathy or radiculopathy, lumbar region; M17.0 Bilateral primary osteoarthritis of knee; G47.33 Obstructive sleep apnea (adult) (pediatric)